=== PATIENT | female | born 2005 | race Caucasian/White ===

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

== ENCOUNTER 2023-01-10 08:56 | Outpatient (AMB) | payer OTHER, SELFPAY ==
--- NOTE | 2023-01-10 09:01 | MHC.OFFVISWM ---
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 She hear about our program from her PCP. Her goal is to lose weight and achieve a healthy lifestyle as well as to improve, if not resolve, obesity related medical conditions, including possible sleep apnea. She reports first being concerned about her weight 6-8 years, highest weight to date was 315. Current weight is 271.6 pounds with a BMI of 43.8. She has tried multiple methods of weight loss including fad diets without permanent results. She lives with her mom, sister, brother and neice. She works 4-5 days per week at [employer]. She states that she does have a.m. fatigue as well as snoring. She reports a sleep study done in [place] approximately 6 years ago when she feels as though she was diagnosed with sleep apnea although never received or was told she needed CPAP machine at night. She does recount that most of the discussion was with her mother as she was a young teenager at that time. As she continues to have symptoms, we will retest. She wakes at:?7 am, and goes to bed at?11 pm. Dinner is at 6 pm. Breakfast: skip AM snack: skip or apples or grapes Lunch: burger, sandwich PM snack: skip Dinner: chicken, rice, beans, pork, beef, vegetables After dinner: skip Other snacks: sunflower seeds and fruit roll-up Liquids: 16 oz water, 2 cans sprite or pepsi, no juice Alcohol/marijuana/tobacco intake: 1/2 bottle vodka daily, for 2 years, quit 1 month ago (none in the last month), 12/12/22, weekly smoke cannabis, no tobacco Exercise: planning on [employer] membership GERD score: 24 JENNIFER score: 2 ESS score: 16 QOL score: 115 PFSH Medical History PCOS (polycystic ovarian syndrome) Morbid obesity Scoliosis Surgical History Hx of tonsillectomy Family History Mother Hypertension Father Family history unknown Alcohol intake: never Patient Tobacco Use Status: Never used Tobacco Female Reproductive History Menstrual Age of Menarche: 7 Review of Systems Const All systems reviewed & are unremarkable except as noted in HPI and below Physical Exam Vital Signs: Last Vital Signs Temp 96.9 F 01/10/23 09:11 Pulse 75 01/10/23 09:11 BP 134/74 01/10/23 09:11 Pulse Ox 96 01/10/23 09:11 Oxygen Delivery Method Room Air 01/10/23 09:11 BMI result Body Mass Index 43.8 Const General: cooperative, healthy appearing and no acute distress Orientation/consciousness: patient oriented x3 HEENT Head: Yes normal to inspection Ears: hearing grossly normal bilaterally General nose exam: Normal external nose present Face and sinus: Yes normal facial exam Eyes General: appearance normal, both eyes and all related structures Resp Effort & Inspection: normal respiratory effort Auscultation: clear to auscultation bilaterally Cardio Rate: regular rate Rhythm: regular rhythm Heart sounds: S1 normal heart sound present and S2 normal heart sound present GI Inspection: Yes normal to inspection, No distended and Yes obesity Palpation (GI): Soft to palpation, nontender and no guarding Auscultation: normal bowel sounds Skin General skin exam: no rashes or lesions noted Neuro General: patient oriented x3 Extrem General: No edema Psych Appearance: grossly normal Mental Status: mental status grossly normal Speech and movement: Normal speech and movement present Affect: normal affect Attitude: cooperative Assessment & Plan Assessment & Plan (1) Morbid obesity: Code(s): E66.01 - Morbid (severe) obesity due to excess calories Plan: This is a?17 yo female who will start our SWL program to prepare for bariatric surgery.? Blood work, h pylori , CXR, ECG, Abd US and UGI have been ordered. She is being scheduled for RD and BH initial consultations. She will start SWL classes and watch the first three videos before her next appointment. ? Adequate sleep of 7-8 hours per night discussed, awakening at 7 am and going to bed at 11 pm ? Purchase body composition analyzer scale ([employer] recommended) and check weight weekly. The best time to do this is first thing in the morning after going to the bathroom. 1. Nutritional counseling: Be sure to careful read the number of scoops per shake Start with 1 Celebrate Rebuild shake ([facility] [employer], [employer], [employer]), (2 scoops in 20 oz unsweetened almond milk) at 8am-10am 2 Celebrate protein bars (Celebrate bars at [facility] [employer], [employer], [employer]) First one at 11am-1pm. Second one at 3pm-5pm. Dinner at 63.pm (10 forks of protein and 10 forks of salad/vegetables). Meal to include lean meat (beef, fish, pork, turkey, chicken), cooked vegetables or a salad with olive oil and/or fruits (berries, pears, apples, kiwi). Avoid salt, breads, potatoes, rice, pasta, desserts. Try to drink 64 oz of water daily and avoid soda and juices. ?2. Each shake would be drunk slowly, like coffee in a period of 2 hours. ?3. Cut each bar in 4 pieces and eat each piece in 30 min ?to make each bar last 2 hours. ?4. I emphasized the importance of measuring accurately the food portion and measure it carefully when serving the food on the plate ?5. The meal portions include 10 full-size forks of meat and 10 full-size forks of salad. You always eat the meat portion but you can replace up to half of the forks of salad/vegetables with rice, potatoes or pasta, or a fruit ?if you like. The less you do it the better weight loss will be. ?6. One full-size fork is what can be scooped on the fork without falling aside and not what can be bit with the fork. Use regular forks like those you find in a typical restaurant. ?7.? Please send me weight measurements as soon as possible and then once a week. Always include your diet and exercise plan. Alternatively come weekly at the office for weight checks and send me the measurements. ?8. Exercise counseling: Begin by watching a stretching for beginners video. Start slowly and begin to stretch your muscles. You should do this before and after each exercise session to prevent injury. Please join [facility] gym near your home. Ask the government relations manager or one of the trainers how to use the machines if you are unfamiliar with them. Start elliptical with a resistance of 2. Increase resistance by 1 every 3 min to your most comfortable resistance with a max resistance of 8. Reduce the resistance by 1 every 3 minutes back down to 2 and repeat cycles for 300 calories. Alternatively, start treadmill with a speed of 3.0 and incline of 0, increasing incline by 1 every 3 minutes to the highest comfortable level (max 6 for now) then decrease in the same fashion. Repeat process to a goal of 300 calories. Goal of 2000 calories burned or more weekly. You may also consider use of the stationary bike. The easiest would be to chose the fat-burn or interval training program on the machine and do this until you reach the 300 calorie goal. Alternatively, you can manually adjust the resistance in a similar fashion as mentioned above, (resistance of 2-8 with a goal speed of 12 mph). Tracking calories is essential. 9. Alternatively start walking outside daily, tracking calories with a goal of 300 calories per day, daily. You can download the eduardo [employer] which can track your time, distance and calories while walking outside. You press start in the eduardo when you start and then stop when you are finished. 10.? It is important to avoid for at least 18 months postoperatively and it has been discussed at the information session 11. Please get labs, EKG and chest X-Ray within 1 week. 12. Discussed and answered all questions regarding?obtained consent to participate in the [place] [facility]?Registry. 13. Please follow the diet plan exactly, without any change. If you do not like something about the plan or you feel hungry, you need to communicate with me so I can help you revise the plan. You should not change the plan yourself. Text me at [phone] 14. Goal is to lose at least 12 pounds in the first month 15. Goal is to lose 10% of your weight before surgery, which is about 27 lbs. Ultimate weight goal: 244 lbs before surgery Patient is morbidly obese and is not considered stable at this time.?I spent a total of 70 minutes reviewing/updating records, examining the patient and counseling the patient on weight management as detailed above. (2) Snoring: Code(s): R06.83 - Snoring Plan: check home sleep study, possible hx of JOVITA dx 2018 when she was 11 in [place] but not clear. Orders: Orders Insulin Today E66.01 - Morbid (severe) obesity due to excess calories, R06.83 - Snoring, R40.0 - Somnolence Vitamin B12 and Folate Today E66.01 - Morbid (severe) obesity due to excess calories, R06.83 - Snoring, R40.0 - Somnolence Zinc Today E66.01 - Morbid (severe) obesity due to excess calories, R06.83 - Snoring, R40.0 - Somnolence Comprehensive Met. Panel Today E66.01 - Morbid (severe) obesity due to excess calories, R06.83 - Snoring, R40.0 - Somnolence Vitamin A Today E66.01 - Morbid (severe) obesity due to excess calories, R06.83 - Snoring, R40.0 - Somnolence PTHI Today E66.01 - Morbid (severe) obesity due to excess calories, R06.83 - Snoring, R40.0 - Somnolence TSH reflex Free T4 Today E66.01 - Morbid (severe) obesity due to excess calories, R06.83 - Snoring, R40.0 - Somnolence Hemoglobin A1c Today E66.01 - Morbid (severe) obesity due to excess calories, R06.83 - Snoring, R40.0 - Somnolence US abdomen comp w elastography Today E66.01 - Morbid (severe) obesity due to excess calories, R06.83 - Snoring, R40.0 - Somnolence XR chest 2V Today E66.01 - Morbid (severe) obesity due to excess calories, R06.83 - Snoring, R40.0 - Somnolence RT home sleep study Today E66.01 - Morbid (severe) obesity due to excess calories, R06.83 - Snoring, R40.0 - Somnolence Lipid Panel Today E66.01 - Morbid (severe) obesity due to excess calories, R06.83 - Snoring, R40.0 - Somnolence IRON PROFILE Today E66.01 - Morbid (severe) obesity due to excess calories, R06.83 - Snoring, R40.0 - Somnolence Complete Blood Count Auto Diff Today E66.01 - Morbid (severe) obesity due to excess calories, R06.83 - Snoring, R40.0 - Somnolence Vitamin B1 Today E66.01 - Morbid (severe) obesity due to excess calories, R06.83 - Snoring, R40.0 - Somnolence C Reactive Protein Today E66.01 - Morbid (severe) obesity due to excess calories, R06.83 - Snoring, R40.0 - Somnolence Ferritin Today E66.01 - Morbid (severe) obesity due to excess calories, R06.83 - Snoring, R40.0 - Somnolence H Pylori Breath Test Today E66.01 - Morbid (severe) obesity due to excess calories, R06.83 - Snoring, R40.0 - Somnolence Vitamin D 25-OH Total Today E66.01 - Morbid (severe) obesity due to excess calories, R06.83 - Snoring, R40.0 - Somnolence ECG 12 lead EKG Today E66.01 - Morbid (severe) obesity due to excess calories, R06.83 - Snoring, R40.0 - Somnolence FL upper GI w air Today E66.01 - Morbid (severe) obesity due to excess calories, R06.83 - Snoring, R40.0 - Somnolence Referrals Behavioral Health Referral E66.01 - Morbid (severe) obesity due to excess calories, R06.83 - Snoring, R40.0 - Somnolence Nutrition/Dietitian Referral E66.01 - Morbid (severe) obesity due to excess calories, R06.83 - Snoring, R40.0 - Somnolence Coding Level of Care Code New Pt Level 5 (51517) Diagnoses Morbid obesity E66.01 Snoring R06.83 Time Spent (min) 75
[2023-01-10 09:11] VITALS: BP 134/74; PULSE 75; TEMP 36.1; O2SAT 96; BMI 43.8
== END 2023-01-10 14:22 | disposition home or self-care (01) ==
PROVIDERS: PCP Pediatrics; Visit Provider Physician Assistant Surgical
DX: E66.01 Morbid (severe) obesity due to excess calories (principal); Z68.54 Body mass index [BMI] pediatric, 95th percentile for age to less than 120% of the 95th percentile for age; R06.83 Snoring
CPT/HCPCS: 99205

== ENCOUNTER 2023-01-10 08:56 | Outpatient (REF) | payer OTHER, SELFPAY ==
--- NOTE | ~2023-01-10 | XR_ITS ---
EXAMINATION: XR CHEST CLINICAL INFORMATION: Morbid obesity COMPARISON: Chest radiograph from 12/07/2022 TECHNIQUE: 2 views of the chest were obtained. FINDINGS: Radiopacity involving the right medial lung base may reflect atelectasis versus evolving infectious/inflammatory etiology. No pneumothorax. Trachea is midline. Cardiac mediastinal silhouette is not enlarged. No large pleural effusion. Osseous structures are intact. Soft tissues are unremarkable. XR/XR chest 2V IMPRESSION: Radiopacity involving the right medial lung base may reflect atelectasis versus evolving infectious/inflammatory etiology.
--- NOTE | 2023-01-10 10:12 | ECG_ITS ---
Test Reason : e66.01 Blood Pressure : / mmHG Vent. Rate : 072 BPM Atrial Rate : 072 BPM P-R Int : 128 ms QRS Dur : 092 ms QT Int : 396 ms P-R-T Axes : 025 041 014 degrees QTc Int : 433 ms Normal sinus rhythm Incomplete right bundle branch block Borderline ECG When compared with ECG of 07-DEC-2022 19:20, Vent. rate has decreased BY 35 BPM Nonspecific T wave abnormality no longer evident in Anterior leads Referred By: Stanley Ruiz Electronically Signed By:CARRINGTON BASILIO MD
[2023-01-10 10:30] LABS: MANUAL DIFF FLAG NO
[2023-01-10 11:06] LABS: Basophils Percent Auto 0.3 % (0-2); Eosinophils Absolute Auto 0.2 X10*3/uL (0.0-0.4); Eosinophils Percent Auto 1.9 % (0-4); Hematocrit 40.6 % (37.0-47.0); Hemoglobin 12.6 g/dl (12.0-16.0); Imm Gran Abs Auto 0.05 X10*3/uL (0.00-0.03); Imm Gran Pct Auto 0.4 % (0.0-0.4); Lymphocytes Absolute Auto 3.1 X10*3/uL (1.2-4.9); Lymphocytes Percent Auto 24.9 % (20-40); Mean Corpuscular Volume 80.7 fL (80.0-98.0); Mean Platelet Volume 10.1 fL (9.4-12.3); Monocytes Absolute Auto 1.2 X10*3/uL (0.1-1.2); Monocytes Percent Auto 9.4 % (2-11); Neutrophils Absolute Auto 7.9 x10*3/uL (2.0-8.3); Neutrophils Percent Auto 63.1 % (45-73); Platelet Count 413 X10*3/uL (160-400); Red Blood Count 5.03 X10*6/uL (4.20-5.50); Red Cell Distribution Width 14.6 % (11.0-16.0); White Blood Count 12.5 X10*3/uL (4.8-10.8)
[2023-01-10 11:12] LABS: Estimated Average Glucose 103 mg/dL; Hemoglobin A1c % 5.2 % (<6.0)
[2023-01-10 11:40] LABS: Alanine Aminotransferase 73 U/L (0-31); Albumin Level 4.3 g/dL (3.5-5.0); Alkaline Phosphatase 88 U/L (39-117); Anion Gap 12 (12-20); Aspartate Amino Transferase 35 U/L (5-31); Bilirubin Total 0.6 mg/dL (0.0-1.0); Blood Urea Nitrogen 15 mg/dL (9-16); C Reactive Protein 0.44 mg/dL (< or = 0.50); Calcium 9.7 mg/dL (8.4-10.2); Carbon Dioxide 26 mmol/L (22-29); Chloride 107 mmol/L (96-108); Cholesterol 165 mg/dL (<200); Estimated Glomerular Filt Rate > 60; Glucose Random 103 mg/dL (60-115); HDL Cholesterol 49 mg/dL (>40); Iron 30 mcg/dL (30-160); LDL Cholesterol Calculated 93 mg/dL (<100); Percent Iron Saturation 8 % (15-50); Sodium 141 mmol/L (135-145); Total Iron Binding Capacity 353 mcg/dL (228-428); Total Protein 7.6 g/dL (6.5-8.0); Triglycerides 119 mg/dL (<150); Unsaturated Iron Binding 323 ug/dL
[2023-01-10 12:00] LABS: Ferritin 21 ng/mL (10-122); Insulin 33 uU/mL (2-29); TSH reflex Free T4 3.64 uIU/mL (0.32-4.0); Vitamin D 25-OH Total 16.2 ng/mL (>30)
[2023-01-10 12:06] LABS: Folate 5.9 ng/mL (> or = 4.0); Vitamin B12 524 pg/mL (200-900)
[2023-01-11 10:22] LABS: Calcium (PTHI) 9.6 mg/dL (8.9-10.4); PTHI 51 pg/mL (16-77)
[2023-01-12 16:53] LABS: Zinc 69 mcg/dL (60-130)
[2023-01-12 18:07] LABS: Vitamin A 33 mcg/dL (26-72)
[2023-01-14 10:03] LABS: Vitamin B1 7 nmol/L (8-30)
== END 2023-01-10 08:57 | disposition home or self-care (01) ==
LOC: HO.XRAY 08:56
PROVIDERS: PCP Pediatrics; Visit Provider Physician Assistant Surgical
DX: E66.01 Morbid (severe) obesity due to excess calories (principal); R06.83 Snoring; R40.0 Somnolence
CPT/HCPCS: 36415; 71046; 80053; 80061; 82306; 82607; 82728; 82746; 83036; 83525; 83540; 83970; 84425; 84443; 84590; 84630; 85025; 86140; 93005; 99202

== ENCOUNTER → 2023-01-31 09:01 | Outpatient (REF) | payer OTHER, SELFPAY ==
--- NOTE | 2023-01-31 09:04 | CA_ITS ---
Acquisition Time: 2023-01-31 09:16:49 Total Exercise Time: 00:06:08 Test Indications: Abnormal ECG Medications: Protocol: KIESHA Max HR: 184 BPM 91% of Pred: 201 BPM Max BP: 174/070 mmHG Max Work Load: 7.1 METS Exercise stress test exercise 6 min 8 sec of Kiesha protocol achieivng 90% MPHR, without chest discomfort, with mild SOB, without arrhythmias, with resting BP 118/82, max BP 174/70, without EKG changes. Test reviewed with Dr. Duarte Referred By: Stanley Ruiz Overread By: Sophia Madison
== END ==
LOC: HO.CARD 09:01
PROVIDERS: PCP Pediatrics; Visit Provider Physician Assistant Surgical
DX: R94.31 Abnormal electrocardiogram [ECG] [EKG] (principal)
CPT/HCPCS: 93017; 99212

== ENCOUNTER → 2023-01-31 09:04 | Outpatient (BNV) | payer OTHER, SELFPAY | PROVIDERS: PCP Pediatrics; Visit Provider Nurse Practitioner | DX: R94.31 Abnormal electrocardiogram [ECG] [EKG] (principal) | CPT/HCPCS: 93016; 93018 ==

== ENCOUNTER 2023-01-31 09:46 | Outpatient (AMB) | payer OTHER, SELFPAY ==
--- NOTE | 2023-01-31 09:56 | MHC.OFFVISWM ---
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 Allergies No Known Allergies Allergy (Verified 01/10/23 09:05) Medication List - Last Reconciled 01/31/23 by ENRIQUETA Barnes albuterol sulfate 90 mcg/actuation (ProAir HFA) 2 puffs inhalation Q4-6H PRN benzonatate 200 mg PO TID PRN ljuekmsbev-voepzqqrflhrf-cdut 50-325-40 mg 1 tab PO Q6H PRN cholecalciferol (vitamin D3) 125 mcg PO DAILY 90 days famotidine 20 mg PO BID ferrous sulfate 325 mg PO DAILY ibuprofen 600 mg PO Q8H PRN efhcbiqbpvdr-nirv-rkicl acid 18-400 mg-mcg 1 tab PO BEDTIME thiamine HCl (vitamin B1) 100 mg PO DAILY HPI HPI Comments History of Present Illness Details The patient is a pleasant 17 year old female who returns to the clinic for pre-operative surgical weight loss management. They were last seen in the office on 01/10/2023, recorded weight at that time was 271.6 pounds, with a BMI of 43.8. Today's weight is 269.6 pounds and BMI is 43.5. There has been a weight loss of 2 pounds since initiating the surgical weight loss program on 01/10/2023 with a total body weight loss of 0.7 %. Pre op work up completed as follows: SWL classes:? []/8 BH appts: 02/23/2023 ? ? RD appts: 01/27/2023 Labs: 01/10/2023-low D, B 1 H. pylori: Not yet done CXR: 01/10/2023-right lower lobe atelectasis verse involving infection or inflammation, states f/u w PCP and atelectasis favored over infectino EK01/10/2023-incomplete right bundle branch block ABD U/S: 02/11/2023 UGI: 01/10/2023 The patient reports she has been doing the forks at dinner. She has been having egg and sausage for breakfast, skip lunch most days due to work. The patient does not have a body composition scale. They also have not been communicating weekly. Current meal plan includes: 1 Celebrate Rebuild shake ([facility] [employer], [employer], [employer]), (2 scoops in 20 oz unsweetened almond milk) at 8am-10am 2 Celebrate protein bars ([employer] bars at [facility] [employer], [employer], [employer]) First one at 11am-1pm. Second one at 3pm-5pm. Dinner at 63.pm (10 forks of protein and 10 forks of salad/vegetables). Drinking 64 oz of water No cannabis in a month Current exercise plan includes: cousin has a treadmill, uses it 2 x per week, 250 calories did not join [employer] yet. [facility] Medical History PCOS (polycystic ovarian syndrome) Morbid obesity Scoliosis Surgical History Hx of tonsillectomy Family History Mother Hypertension Father Family history unknown Social History Alcohol intake: never Patient Tobacco Use Status: Never used Tobacco Female Reproductive History Menstrual Age of Menarche: 7 Review of Systems Const All systems reviewed & are unremarkable except as noted in HPI and below Physical Exam Const General: healthy appearing and no acute distress Resp Effort & Inspection: normal respiratory effort Auscultation: clear to auscultation bilaterally Cardio Rate: regular rate Rhythm: regular rhythm GI Auscultation: normal bowel sounds Extrem General: Yes normal to inspection Assessment & Plan Assessment & Plan (1) Morbid obesity: Code(s): E66.01 - Morbid (severe) obesity due to excess calories Plan: Due to financial reasons, she has been unable to obtain the shakes. She is scheduled to get them this when she gets paid. She additionally is going to join the gym, either [employer] near her work or [employer]. She will return to the office in approximately a month. She has been encouraged to text me weekly with her weight as well as if there is any issues or concerns. Reminded of upcoming appointments. Coding Level of Care Code Est Pt Level 3 (63975) Diagnoses Morbid obesity E66.01
[2023-01-31 10:11] VITALS: BP 145/96; PULSE 92; TEMP 36; O2SAT 96; BMI 43.5
== END 2023-01-31 10:29 | disposition home or self-care (01) ==
PROVIDERS: PCP Pediatrics; Visit Provider Physician Assistant Surgical
DX: E66.01 Morbid (severe) obesity due to excess calories (principal); Z68.54 Body mass index [BMI] pediatric, 95th percentile for age to less than 120% of the 95th percentile for age
CPT/HCPCS: 99213

== ENCOUNTER 2023-02-11 10:51 | Outpatient (REF) | payer OTHER, SELFPAY | END 2023-02-11 10:52 | disposition home or self-care (01) | LOC: HO.US 10:51 | PROVIDERS: PCP Pediatrics; Visit Provider Physician Assistant Surgical | DX: E66.01 Morbid (severe) obesity due to excess calories (principal); R06.83 Snoring; R40.0 Somnolence | CPT/HCPCS: 76705; 76981 ==

== ENCOUNTER 2023-02-15 12:24 | Outpatient (REF) | payer OTHER, SELFPAY ==
[2023-02-15 13:54] LABS: Hematocrit 39.6 % (37.0-47.0); Hemoglobin 12.8 g/dl (12.0-16.0); Mean Corpuscular HGB Conc 32.3 g/dl (31.0-35.0); Mean Corpuscular Hemoglobin 25.5 pg (27.0-33.0); Mean Platelet Volume 10.2 fL (9.4-12.3); Platelet Count 361 X10*3/uL (160-400); Red Blood Count 5.01 X10*6/uL (4.20-5.50); Red Cell Distribution Width 14.6 % (11.0-16.0); White Blood Count 7.9 X10*3/uL (4.8-10.8)
[2023-02-15 14:46] LABS: HCG Quantitative < 2 mIU/mL; TSH reflex Free T4 1.71 uIU/mL (0.32-4.0)
[2023-02-16 08:24] LABS: Prolactin 8.2 ng/mL
[2023-02-16 12:38] LABS: CT PCR NOT DETECTED (Not Detect.); NG PCR NOT DETECTED (Not Detect.)
[2023-02-16 15:31] LABS: BV Int Neg Control Negative (Negative); BV Int Pos Control Positive (Positive)
== END 2023-02-15 12:25 | disposition home or self-care (01) ==
LOC: HO.LAB 12:24
PROVIDERS: PCP Pediatrics; Visit Provider Obstetrics & Gynecology
DX: N93.9 Abnormal uterine and vaginal bleeding, unspecified (principal)
CPT/HCPCS: 0353U; 81025; 84146; 84443; 84702; 85027; 87480; 87510; 87660; 99212

== ENCOUNTER 2023-02-15 12:24 | Outpatient (AMB) | payer OTHER, SELFPAY ==
--- NOTE | 2023-02-15 12:25 | MHC.OFFVIS ---
Intake Vital Signs 02/15/23 12:33 Height 5 ft 6 in Weight 271 lb 4 oz BMI 43.8 BP 108/70 Blood Pressure Location Lt brachial Position Sitting Intake Visit Reasons: Irregular menses Intake Note: Pt c/o: since Dec 2022, her cycles have changing being more frequent and heavier flow with more cramping Allergies No Known Allergies Allergy (Verified 02/15/23 12:27) Is last menstrual period known: Yes Last menstrual period: 02/08/23 HPI HPI Comments History of Present Illness Details Presenting complaining of irregular menstrual cycles over the last few years with no associated had growth or nipple discharge PFSH Medical History PCOS (polycystic ovarian syndrome) Morbid obesity Scoliosis Surgical History Hx of tonsillectomy Family History Mother Hypertension Father Family history unknown Social History Alcohol intake: never Patient Tobacco Use Status: Never used Tobacco Female Reproductive History Menstrual Age of Menarche: 7 Date of last menstrual period: 02/08/23 Review of Systems Const All systems reviewed & are unremarkable except as noted in HPI and below Card Reports as per HPI Resp Reports as per HPI GI Reports as per HPI and Reports no additional complaints Reports as per HPI Physical Exam Vital Signs: Last Vital Signs BP 108/70 02/15/23 12:33 BMI result Body Mass Index 43.8 Const General: cooperative, healthy appearing and comfortable Chest Chest palpation & inspection: normal inspection of the chest and normal palpation of entire chest wall Breast/axilla inspection: normal inspection of the breasts and normal inspection of the axillae Breast/axilla palpation: normal palpation of the breasts, normal palpation of the axillae and no axillary lymphadenopathy Resp Effort & Inspection: normal respiratory effort Auscultation: clear to auscultation bilaterally Percussion: percussion normal Cardio Palpation: normal PMI Rate: regular rate Rhythm: regular rhythm Heart sounds: no murmurs and no rubs Peripheral pulses: Peripheral pulses 2+ throughout GI Inspection: Yes normal to inspection Palpation (GI): Soft to palpation, nontender, no guarding, not rigid and No hepatosplenomegaly present Percussion: Yes normal to percussion Auscultation: normal bowel sounds Rectal Exam - Female: deferred General: Yes bladder normal to palpation External Female Exam: No lesion Speculum Exam - Vagina: normal appearance of the vagina, normal palpation, normal vaginal discharge and not erythematous Speculum Exam - Cervix: normal appearance of the cervix and normal palpation Bimanual exam- vagina & uterus: normal bimanual exam, normal palpation, uterine size normal, bladder normal to palpation, consistency normal and normal palpation Bimanual Exam- Adnexa, other: normal adnexae, no masses and no tenderness Assessment & Plan Assessment & Plan (1) Abnormal uterine bleeding (AUB): Code(s): N93.9 - Abnormal uterine and vaginal bleeding, unspecified Plan: Pap smear not indicated this the patient is below the age of 21, GC and chlamydia taken CBC, TSH, HCG, and pelvic ultrasound ordered. Discussed with the patient the different causes of abnormal bleeding including thyroid disorders, uterine and ovarian pathology and other potential causes. Discussed with the patient the work up including CBC (to r/o anemia), TSH, pelvic Ultrasound. All questions answered and the patient verbalized understanding. Instructed the patient to schedule an appointment for an endometrial biopsy in 2 weeks. Orders: Orders Complete Blood Count no Diff Today N93.9 - Abnormal uterine and vaginal bleeding, unspecified US pelvic and transvaginal Today N93.9 - Abnormal uterine and vaginal bleeding, unspecified TSH reflex Free T4 Today N93.9 - Abnormal uterine and vaginal bleeding, unspecified HCG Quantitative Today N93.9 - Abnormal uterine and vaginal bleeding, unspecified Prolactin Today N93.9 - Abnormal uterine and vaginal bleeding, unspecified Coding Level of Care Code Est Pt Level 3 (64067) Diagnoses Abnormal uterine bleeding (AUB) N93.9
[2023-02-15 12:33] VITALS: BP 108/70; BMI 43.8
== END 2023-02-15 13:04 | disposition home or self-care (01) ==
LOC: HO.HWS 12:24
PROVIDERS: PCP Pediatrics; Visit Provider Obstetrics & Gynecology
DX: N93.9 Abnormal uterine and vaginal bleeding, unspecified (principal); Z32.02 Encounter for pregnancy test, result negative
CPT/HCPCS: 99213

== ENCOUNTER 2023-02-15 12:48 | Outpatient (REF) | payer OTHER, SELFPAY | END 2023-02-15 12:49 | disposition home or self-care (01) | LOC: HO.LNP 12:48 | PROVIDERS: Visit Provider Obstetrics & Gynecology | DX: Z13.89 Encounter for screening for other disorder (principal) ==

== ENCOUNTER → 2023-02-22 15:09 | Outpatient (REF) | payer OTHER, SELFPAY | LOC: HO.SL 15:09 | PROVIDERS: PCP Pediatrics; Visit Provider Physician Assistant Surgical | DX: R06.83 Snoring (principal); E66.01 Morbid (severe) obesity due to excess calories; R40.0 Somnolence | CPT/HCPCS: 95806 ==

== ENCOUNTER → 2023-02-22 15:17 | Outpatient (BNV) | payer OTHER, SELFPAY | PROVIDERS: PCP Pediatrics; Visit Provider Internal Medicine | DX: R06.83 Snoring (principal) | CPT/HCPCS: 95806 ==

== ENCOUNTER 2023-03-07 10:30 | Outpatient (AMB) | payer OTHER, SELFPAY ==
--- NOTE | 2023-03-07 10:29 | MHC.OFFVISWM ---
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 Allergies No Known Allergies Allergy (Verified 02/15/23 12:27) Medication List - Last Reconciled 03/07/23 by ENRIQUETA Barnes albuterol sulfate 90 mcg/actuation (ProAir HFA) 2 puffs inhalation Q4-6H PRN benzonatate 200 mg PO TID PRN bdxytukqrf-lqnbsbjsjppmm-ewax 50-325-40 mg 1 tab PO Q6H PRN cholecalciferol (vitamin D3) 125 mcg PO DAILY 90 days famotidine 20 mg PO BID ferrous sulfate 325 mg PO DAILY ibuprofen 600 mg PO Q8H PRN ixnbhiguuzzz-rsjo-xvwws acid 18-400 mg-mcg 1 tab PO BEDTIME thiamine HCl (vitamin B1) 100 mg PO DAILY HPI HPI Comments History of Present Illness Details The patient is a pleasant 17 year old female who returns to the clinic for pre-operative surgical weight loss management. They were last seen in the office on 01/31/23, recorded weight at that time was 269.6 pounds, with a BMI of 43.5. Today's weight is 274 pounds and BMI is 44.2. There has been a weight gain of 2.4 pounds since initiating the surgical weight loss program on 01/10/2023. Pre op work up completed as follows: SWL classes:? []/8 appts: 02/23/2023 ? ? RD appts: 01/27/2023 Labs: 01/10/2023-low D, B 1 H. pylori: Not yet done CXR: 01/10/2023-right lower lobe atelectasis verse involving infection or inflammation, states f/u w PCP and atelectasis favored over infection EK01/10/2023-incomplete right bundle branch block - stress test 01/31/23 - normal ABD U/S: 02/11/2023 UGI: 01/10/2023 The patient reports she has not been following the meal plan and exercise plan. She has not been communicating although she has gotten the body composition scales. She reports she has been having trouble mentally. She has discussed this with her PCP and was referred to a therapist but did not get along with her. She has not tried to get a referral. She will call her PCP She has the shakes and bars. She reports difficulty with food. She states she grew up in a house of skinny people and she always felt that she doesn't want to eat much. She is having the shake and then toast and eggs and then a bar around lunch and then another shake. Not measuring food Current meal plan includes: 1 Celebrate Rebuild shake ([facility] [employer], [employer], [employer]), (2 scoops in 20 oz unsweetened almond milk) at 8am-10am 2 Celebrate protein bars ([employer] bars at [facility] [employer], [employer], [employer]) First one at 11am-1pm. Second one at 3pm-5pm. Dinner at 630pm (10 forks of protein and 10 forks of salad/vegetables). Drinking 64 oz of water No cannabis in a while maybe end of January. Current exercise plan includes: she joined with her cousin. gym 3 days per week. treadmill, 350 calories [facility] Medical History PCOS (polycystic ovarian syndrome) Morbid obesity Scoliosis Surgical History Hx of tonsillectomy Family History Mother Hypertension Father Family history unknown Social History Alcohol intake: never Patient Tobacco Use Status: Never used Tobacco Female Reproductive History Menstrual Age of Menarche: 7 Review of Systems Const All systems reviewed & are unremarkable except as noted in HPI and below Assessment & Plan Assessment & Plan (1) Morbid obesity: Code(s): E66.01 - Morbid (severe) obesity due to excess calories Plan: Discussed the critical nature of following the meal plan exactly, following the exercise plan as recommended. Texting weekly with her weight measurements and if she has any problems or concerns with the plans. She states that she will call her primary care physician to discuss referral for a behavioral health specialist as she states her mental health has been inhibiting her progress. Additionally, we discussed the possibility of taking a break from the program but she wishes to be successful. She states that she will commit and we discussed the goal of a 2-3 lb weight loss per week. We will have her return to the office in approximately 1 month with the understanding that if she needs to take a break she certainly can. She had no specific questions and she will communicate as directed. Reminded of missed appointments and she will call to reschedule. Additionally, given her irregular EKG with an incomplete right bundle branch block. She underwent a stress test on 01/31/2023 which was normal. Telehealth Telehealth Location of provider rendering services: practice address Location of patient: address on file Patient Identification confirmed using: Name, : Yes Telehealth method: voice only Patient verbally consented to treatment: Yes Patient verbally consented to billing insurance company: Yes Patient informed of any privacy concerns related to visit: Yes Minutes spent on Phone/Video with Pt.: 25 Coding Level of Care Code Tele Est Pt Level 4 (41898) Diagnoses Morbid obesity E66.01 Time Spent (min) 40
[2023-03-07 10:37] VITALS: BMI 44.2
== END 2023-03-07 11:29 | disposition home or self-care (01) ==
LOC: HO.HBS 11:06
PROVIDERS: PCP Pediatrics; Visit Provider Physician Assistant Surgical
DX: E66.01 Morbid (severe) obesity due to excess calories (principal)
CPT/HCPCS: 99214

== ENCOUNTER → 2023-03-07 10:30 | Outpatient (BNVA) | payer OTHER, SELFPAY | PROVIDERS: PCP Pediatrics; Visit Provider Physician Assistant Surgical | DX: E66.01 Morbid (severe) obesity due to excess calories (principal) ==

== ENCOUNTER 2023-03-08 13:19 | Outpatient (REF) | payer OTHER, SELFPAY ==
--- NOTE | ~2023-03-08 | US_ITS ---
EXAMINATION: US PELVIS CLINICAL INFORMATION: Abnormal uterine and vaginal bleeding; the last menstrual period was on 02/02/2023. COMPARISON: Pelvic ultrasound dated 09/18/2020. TECHNIQUE: Ultrasound of the pelvis is performed using both transabdominal and transvaginal transducers along with Doppler. Transvaginal imaging is performed due to inadequate visualization transabdominally. FINDINGS: Uterus: The uterus is anteverted and anteflexed. The uterus measures 7.7 x 3.7 x 5.1 cm. Nabothian cysts are seen within the cervix. The double wall endometrial thickness is 1.7 mm. There are endometrial cystic changes and increased vascularity. The uterus is smooth in contour and has normal myometrial echogenicity. No visible fibroid. Adnexa: Both ovaries are visualized. There is normal color flow to the adnexa. There is no ovarian torsion. There is no pelvic ascites or fluid collection. Right ovary measures 3.9 x 2.4 x 1.9 cm, volume 9.3 mm. Left ovary measures 3.7 x 2.2 x 1.9 cm, volume 8.1 mL. US/US pelvic and transvaginal IMPRESSION: 1. There is endometrial stripe thickening to 1.7 cm, with cystic change. Gynecology evaluation and management are recommended, with consideration for tissue sampling if clinically appropriate. 2. Nabothian cysts are seen within the cervix.
== END 2023-03-08 13:20 | disposition home or self-care (01) ==
LOC: HO.US 13:19
PROVIDERS: PCP Pediatrics; Visit Provider Obstetrics & Gynecology
DX: N93.9 Abnormal uterine and vaginal bleeding, unspecified (principal)
CPT/HCPCS: 76830; 76856

== ENCOUNTER 2023-03-24 08:35 | Outpatient (REF) | payer OTHER, SELFPAY ==
--- NOTE | ~2023-03-24 | FL_ITS ---
EXAMINATION: XR FLUOROSCOPY UPPER GI WITH AIR CLINICAL INFORMATION: Morbid obesity due to excess calories; reflux episodically. COMPARISON: No prior. TECHNIQUE: Fluoroscopic air contrast upper GI examination was performed utilizing standard techniques with thin and thick barium and effervescent granules. Numerous spot images were obtained. Several fluoroscopic image hold cine sequences were also obtained. FINDINGS: Lateral cine images of the oropharynx and hypopharynx demonstrate normal swallow mechanism with normal epiglottic inversion and soft palate elevation. No tracheal penetration, glottic or subglottic aspiration identified. No nasopharyngeal reflux present. Hypopharyngeal structures appear normal without evidence of mass or diverticulum. There was no significant cricopharyngeal achalasia. Dual and single contrast images of the esophagus demonstrate normal caliber, contour, and mucosal pattern. No evidence of stricture, mass, or ulcerations identified. Primary esophageal peristalsis was normal, however followed by very mild nonpropulsive tertiary contractions. No evidence of hiatus hernia identified. Spontaneous gastroesophageal reflux present to the level of the thoracic inlet. Dual contrast and single contrast images of the stomach demonstrated normal contour and mucosal pattern without evidence of mass, ulceration, or other abnormality. Contrast freely passed into the gastric antrum and duodenal bulb without delay. Single and air-contrast images of the duodenal bulb demonstrate no abnormality. The duodenal sweep has a normal appearance, course, and mucosal fold appearance. No malrotation. The imaged proximal jejunum has a normal fold pattern and caliber. FLUOROSCOPY TIME: 3 minutes 44 seconds Number of Spot Images: 7 Number of cines obtained: 13 DOSE AREA PRODUCT: 445.9 uGy-m2 (microgray-meter squared) FL/FL upper GI w air IMPRESSION: Significant gastroesophageal reflux to the level of the thoracic inlet. Mildly disordered tertiary contractions of the esophagus. Otherwise normal exam.
== END 2023-03-24 08:36 | disposition home or self-care (01) ==
LOC: HO.XRAY 08:35
PROVIDERS: PCP Pediatrics; Visit Provider Physician Assistant Surgical
DX: E66.01 Morbid (severe) obesity due to excess calories (principal); R06.83 Snoring; R40.0 Somnolence
CPT/HCPCS: 74246

== ENCOUNTER → 2023-03-24 08:36 | Outpatient (BNV) | payer OTHER, SELFPAY | PROVIDERS: PCP Pediatrics; Visit Provider Radiology Diagnostic Radiology | DX: K21.9 Gastro-esophageal reflux disease without esophagitis (principal); E66.01 Morbid (severe) obesity due to excess calories | CPT/HCPCS: 74246 ==

== ENCOUNTER 2023-06-13 13:01 | Outpatient (AMB) | payer OTHER, SELFPAY ==
--- NOTE | 2023-06-13 13:31 | A.OFFVIS_ITS ---
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 The following workup was done.: H&H= 12.8/39.6 TSH, prolactin, GC and chlamydia were negative. Pelvic ultrasound showed the following: Uterus: The uterus is anteverted and anteflexed. The uterus measures 7.7 x 3.7 x 5.1 cm. Nabothian cysts are seen within the cervix. The double wall endometrial thickness is 1.7 mm. There are endometrial cystic changes and increased vascularity. The uterus is smooth in contour and has normal myometrial echogenicity. No visible fibroid. Adnexa: Both ovaries are visualized. There is normal color flow to the adnexa. There is no ovarian torsion. There is no pelvic ascites or fluid collection. Right ovary measures 3.9 x 2.4 x 1.9 cm, volume 9.3 mm. Left ovary measures 3.7 x 2.2 x 1.9 cm, volume 8.1 mL. PFSH Medical History (Updated 07/01/23 @ 11:44 by Alvina Frank RN) Migraine PCOS (polycystic ovarian syndrome) Morbid obesity Scoliosis Surgical History (Updated 07/01/23 @ 11:28 by Alvina Frank RN) Hx of wisdom tooth extraction Hx of tonsillectomy Family History Mother Hypertension Father Family history unknown Social History Alcohol intake: never Patient Tobacco Use Status: Never used Tobacco Use of substances other than those prescribed or required for medical reasons: No Are you DNR?: No Advance Directives: No Advance Directives Information Provided: Yes Female Reproductive History Menstrual Age of Menarche: 7 Date of last menstrual period: 06/04/23 Total pregnancies: 2 Full term: 2 Review of Systems Const All systems reviewed & are unremarkable except as noted in HPI and below Reports as per HPI and Reports no additional complaints Card Reports as per HPI and Reports no additional complaints Resp Reports as per HPI and Reports no additional complaints GI Reports no additional complaints Reports no additional complaints Physical Exam Vital Signs: Last Vital Signs BP 120/72 06/13/23 13:36 BMI result Body Mass Index 44.1 Const General: cooperative, healthy appearing and comfortable Resp Effort & Inspection: normal respiratory effort Auscultation: clear to auscultation bilaterally Percussion: percussion normal Cardio Palpation: normal PMI Rate: regular rate Rhythm: regular rhythm Heart sounds: no murmurs and no rubs Peripheral pulses: Peripheral pulses 2+ throughout GI Inspection: Yes normal to inspection Palpation (GI): Soft to palpation, nontender, no guarding, not rigid and No hepatosplenomegaly present Percussion: Yes normal to percussion Auscultation: normal bowel sounds Rectal Exam - Female: deferred Assessment & Plan Assessment & Plan (1) Abnormal ultrasound of endometrium: Code(s): R93.5 - Abnormal findings on diagnostic imaging of other abdominal regions, including retroperitoneum Category: Medical Plan: Discussed with the patient the finding on pelvic ultrasound showing cystic endometrium with hypervascularity; possible differential diagnosis includes normal menstrual cycle changes, endometrial polyp, hyperplasia or malignancy. Recommended endometrial sampling via EMB versus hysteroscopy D&C possible polypectomy. All the pros and cons risks and benefits of each approach were discussed with the patient, endometrial biopsy being less invasive, office procedure with less sensitivity and inability diagnose a polyp and removal versus hysteroscopy done under anesthesia more invasive more sensitive to endometrial cancer and possibility of diagnosing and endometrial polyp with the possibility of polypectomy. All questions were answered pt verbalized understanding and decided to proceed with hysteroscopy D&C possible polypectomy/myomectomy Discussed with the patient the procedure , all benefits and risks including but not limited to inability to complete the procedure , insufficient endometrial tissue for a complete evaluation of the endometrial cavity , bleeding, infection, possible need for blood transfusion with all its risk ( HIV,syphilis, Hepatitis, anaphylaxis shock, others..), injury to bladder, rectum, possible need for laparoscopy/laparotomy or hysterectomy. The patient verbalized understanding and signed the consent. Instructions given the patient to schedule a 2 week postoperative appointment Coding Level of Care Code Est Pt Level 3 (62318) Diagnoses Abnormal ultrasound of endometrium R93.5
[2023-06-13 13:36] VITALS: BP 120/72; BMI 44.1
== END 2023-06-13 13:55 | disposition home or self-care (01) ==
PROVIDERS: PCP Pediatrics; Visit Provider Obstetrics & Gynecology
DX: R93.5 Abnormal findings on diagnostic imaging of other abdominal regions, including retroperitoneum (principal)
CPT/HCPCS: 99213

== ENCOUNTER → 2023-06-13 13:01 | Outpatient (BNVA) | payer OTHER, SELFPAY | PROVIDERS: PCP Pediatrics; Visit Provider Obstetrics & Gynecology | DX: R93.5 Abnormal findings on diagnostic imaging of other abdominal regions, including retroperitoneum (principal) | CPT/HCPCS: 99212 ==

== ENCOUNTER 2023-07-01 10:55 | Day surgery (SDC) | payer OTHER, SELFPAY ==
[2023-06-29 09:15] VITALS: BMI 44.1
--- NOTE | 2023-06-29 13:27 | HO.ANESPROP2 ---
Documented by User: Katherine Hicks NP 06/29/23 13:27 HPI - Anesthesia Eval Consult details Narrative: 18yo F for D&C Hysteroscopy,possible myomectomy,possible polypectomy BMI 44 PMFSH Active Problems Active Problems: All Active Problems Abnormal ultrasound of endometrium (Acute) Abnormal EKG (Acute) Daytime sleepiness (Acute) Snoring (Acute) Encounter for weight management (Acute) Encounter to discuss test results (Acute) Amenorrhea (Acute) Elevated blood pressure reading without diagnosis of hypertension (Acute) PCOS (polycystic ovarian syndrome) (Acute) Anemia (Acute) Morbid obesity (Acute) Abnormal uterine bleeding (AUB) (Acute) Morbid obesity with BMI of 40.0-44.9, adult (Acute) Past Medical History Medical History (Updated 07/01/23 @ 11:44 by Alvina Frank, RN) Migraine PCOS (polycystic ovarian syndrome) Morbid obesity Scoliosis Family History Family History Mother Hypertension Father Family history unknown Surgical History Surgical History (Updated 07/01/23 @ 11:28 by Alvina Frank RN) Hx of wisdom tooth extraction Hx of tonsillectomy Social History Social History Alcohol intake: never Patient Tobacco Use Status: Never used Tobacco Use of substances other than those prescribed or required for medical reasons: No Are you DNR?: No Advance Directives: No Advance Directives Information Provided: Yes Meds Allergies Allergy/AdvReac Type Severity Reaction Status Date / Time No Known Allergies Allergy Verified 07/01/23 11:21 Home Medications ?Medication ?Instructions ?Recorded ?Confirmed ?Last Taken ?Type ibuprofen 600 mg tablet 600 mg PO Q8H PRN Pain 08/08/20 06/29/23 Unknown History multivitamin-ferrous 1 tab PO BEDTIME 08/08/20 06/29/23 Unknown History fumarate-folic acid 18 mg-400 mcg tablet Exam Height,Weight and Vital Signs: Height 5 ft 6 in Weight 124 kg Assessment and Plan Assessment Anesthesia Assessment: Chart Reviewed Documented by User: Candy Sen MD 07/01/23 12:26 PMFSH Past Medical History Medical History (Updated 07/01/23 @ 11:44 by Alvina Frank, RN) Migraine PCOS (polycystic ovarian syndrome) Morbid obesity Scoliosis Family History Family History Mother Hypertension Father Family history unknown Family history of problems with anesthesia: No Surgical History Surgical History (Updated 07/01/23 @ 11:28 by Alvina Frank, RN) Hx of wisdom tooth extraction Hx of tonsillectomy History of Problems with Anesthesia: No Social History Social History Alcohol intake: never Patient Tobacco Use Status: Never used Tobacco Use of substances other than those prescribed or required for medical reasons: No Are you DNR?: No Advance Directives: No Advance Directives Information Provided: Yes Meds Allergies Allergy/AdvReac Type Severity Reaction Status Date / Time No Known Allergies Allergy Verified 07/01/23 11:21 Home Medications ?Medication ?Instructions ?Recorded ?Confirmed ?Last Taken ?Type ibuprofen 600 mg tablet 600 mg PO Q8H PRN Pain 08/08/20 06/29/23 Unknown History multivitamin-ferrous 1 tab PO BEDTIME 08/08/20 06/29/23 Unknown History fumarate-folic acid 18 mg-400 mcg tablet Exam Airway Mallampati Class: II TM Dist: >3cm Neck ROM: Full Assessment and Plan Assessment Anesthesia Assessment: Anesthesia Plan Discussed Final Anesthetic Review Family History of Problems with Anesthesia: No History of Problems with Anesthesia: No NPO: Yes ASA Class: III Final Preanesthetic Review: No Changes in Pt Med Stat, Meds/Allgs Chart Reviewed, Consent Obtained/Reviewed and Anes Risks/Benef Reviewed Patient Risk: Intermediate Procedure Risk: Low Anesthetic Plan Anesthetic Plan: GA Disposition: Standard PACU
[2023-07-01 11:21] VITALS: BMI 44.5
[2023-07-01 11:32] VITALS: BP 136/79; PULSE 62; RESP 16; TEMP 36.1; O2SAT 97
[2023-07-01 11:38] LABS: UPreg QC Valid YES; Urine Pregnancy NEGATIVE (NEGATIVE)
[2023-07-01] MEDS: Lactated Ringers 1,000 ML 100 ML IVCONT (11:41)
--- NOTE | 2023-07-01 11:45 | MHC.SHP ---
Pre-Procedural Eval Section A - 24 Hr Update-Section A only Date of Service: 07/01/23 The patient is an INPATIENT: No Changes since office visit: No Cold of Flu in the past 2 weeks, No New Medical Problems, No Changes in Medication and No Patient answered all questions The patient has been examined within 24 hours of the surgical procedure. The History & Physical has been completed within 30 days and I have reviewed it.: Yes Section B - Complete if H&P > 30 days Chief Complaint: Abnormal findings on diagnostic imaging Allergies: Allergies Allergy/AdvReac Type Severity Reaction Status Date / Time No Known Allergies Allergy Verified 07/01/23 11:21 Plan Diagnosis/Plan: Unchanged I have reviewed the history and physical and performed a pertinent physical examination on my patient. No changes have occurred unless specified. Time Spent With Patient Time: Total time managing care of this patient today ____ minutes.
--- NOTE | 2023-07-01 13:27 | PM.OP ---
Brief Operative Note Date of Service: 07/01/23 Pre-op diagnosis: Abnormal uterine bleeding Abnormal endometrium by ultrasound Post-op diagnosis: same (Normal endometrial cavity) Procedure: Hysteroscopy D&C Surgeon: Ramirez Renteria MD Anesthesia: GLMA Was an Cardiac Monitor used for this Procedure?: No Estimated blood loss (mL): 0 Pathology: other (Endometrial Scrapping. ) Condition: stable Disposition: PACU
--- NOTE | 2023-07-01 13:27 | W.PM.OPN ---
Operative Note Operative Note Date of Service: 07/01/23 Narrative: Preop Diagnosis: Abnormal uterine bleeding, abnormal endometrial by ultrasound Operation: Diagnostic Hysteroscopy, Dilataion & Curettage Post Op Diagnosis: Normal endometrial and endocervical cavity, no evidence of pathology QBL: Minimal Anesthesia: GLMA Surgeon: Ramirez Renteria MD Account Installer: None Complication: None Pathology: Endometrial Scrapings Procedure: The patient was put in the dorsal lithotomy position, scrubbed, and draped in the usual manner. A sterile speculum was inserted in the patient's vagina. The anterior lip of the cervix was grasped with a single tooth tenaculum. The cervix was dilated up to 5 mm, then the scope was inserted in the patient's uterus. Inspection revealed normal endocervical & endometrial cavity with no evidence of pathology. The scope was taken out of the uterine cavity , then sharp curetting was carried on with no complications. At the end of the procedure, all instruments were taken out of the patient uterine and vaginal cavity. The single tooth tenaculum was removed and homeostasis was assured using pressure. The patient tolerated the procedure well and was transferred to the PACU in a stable condition.
[2023-07-01 13:30] VITALS: BP 138/84; PULSE 71; RESP 14; TEMP 36.2; O2SAT 93
[2023-07-01 13:35] VITALS: BP 144/88; PULSE 57; RESP 16; O2SAT 96
[2023-07-01 13:40] VITALS: BP 140/91; PULSE 57; RESP 16; O2SAT 96
[2023-07-01 13:45] VITALS: BP 131/89; PULSE 73; RESP 16; O2SAT 97
[2023-07-01 14:00] VITALS: BP 116/71; PULSE 58; RESP 16; TEMP 36.4; O2SAT 97
== END 2023-07-01 15:12 | disposition home or self-care (01) ==
PROVIDERS: PCP Pediatrics; Visit Provider Obstetrics & Gynecology
PROC: 0UDB8ZZ Extraction of Endometrium, Via Natural or Artificial Opening Endoscopic (ICD-10-PCS; CPT 58558; principal; 2023-07-01 12:40)
DX: N93.9 Abnormal uterine and vaginal bleeding, unspecified (principal); R93.5 Abnormal findings on diagnostic imaging of other abdominal regions, including retroperitoneum; E28.2 Polycystic ovarian syndrome; M41.9 Scoliosis, unspecified; E66.01 Morbid (severe) obesity due to excess calories; Z68.41 Body mass index [BMI] 40.0-44.9, adult; Z79.1 Long term (current) use of non-steroidal anti-inflammatories (NSAID); Z79.899 Other long term (current) drug therapy
CPT/HCPCS: 58558; 81025; 88305; J1885; J2405; J2704; J3010

== ENCOUNTER → 2023-07-01 10:55 | Outpatient (BNV) | payer OTHER, SELFPAY | PROVIDERS: PCP Pediatrics; Visit Provider Obstetrics & Gynecology | DX: N93.9 Abnormal uterine and vaginal bleeding, unspecified (principal) | CPT/HCPCS: 58558 ==

== ENCOUNTER 2023-07-14 12:36 | Outpatient (AMB) | payer OTHER, SELFPAY ==
[2023-07-14 13:06] VITALS: BP 124/76; BMI 44.2
--- NOTE | 2023-07-14 13:06 | MHC.OFFVIS ---
Vital Signs 07/14/23 13:06 Height 5 ft 6 in Weight 274 lb BMI 44.2 BP 124/76 Intake Visit Reasons: post op Allergies No Known Allergies Allergy (Verified 07/01/23 11:21) HPI Comments Details: The patient is presenting post hysteroscopy D&C no complaints minimal vaginal bleeding no feverishness chills or abdominal pain. The pathology showed the following: Disordered proliferative endometrium; negative for atypia or hyperplasia H&H, TSH, prolactin, hCG, GC/CT were all negative. Pelvic ultrasound showed the following: Uterus: The uterus is anteverted and anteflexed. The uterus measures 7.7 x 3.7 x 5.1 cm. Nabothian cysts are seen within the cervix. The double wall endometrial thickness is 1.7 mm. There are endometrial cystic changes and increased vascularity. The uterus is smooth in contour and has normal myometrial echogenicity. No visible fibroid. Adnexa: Both ovaries are visualized. There is normal color flow to the adnexa. There is no ovarian torsion. There is no pelvic ascites or fluid collection. Right ovary measures 3.9 x 2.4 x 1.9 cm, volume 9.3 mm. Left ovary measures 3.7 x 2.2 x 1.9 cm, volume 8.1 mL. PFSH Medical History Migraine PCOS (polycystic ovarian syndrome) Morbid obesity Scoliosis Surgical History Hx of wisdom tooth extraction Hx of tonsillectomy Family History Mother Hypertension Father Family history unknown Social History Alcohol intake: never Patient Tobacco Use Status: Never used Tobacco Female Reproductive History Menstrual Age of Menarche: 7 Review of Systems Const All systems reviewed & are unremarkable except as noted in HPI and below Reports as per HPI and Reports no additional complaints GI Reports no additional complaints Reports no additional complaints Physical Exam Vital Signs: BMI result Body Mass Index 44.2 Assessment & Plan Assessment & Plan (1) Abnormal ultrasound of endometrium: Code(s): R93.5 - Abnormal findings on diagnostic imaging of other abdominal regions, including retroperitoneum Category: Medical Plan: Discussed with the patient the hysteroscopic intraoperative finding, no evidence of abnormal pathology, and the pathology results. All questions answered, the patient verbalized understanding (2) Abnormal uterine bleeding (AUB): Code(s): N93.9 - Abnormal uterine and vaginal bleeding, unspecified Category: Medical Plan: Discussed with the patient the results of the work up done and options of treatment including but not limited to BCP's, cyclic Progesterone, Mirena IUD, endometrial ablation and hysterectomy. All pros, cons, risks and benefits of each option were discussed with the patient and the patient decided to go ahead with cyclic progesterone, so a more detailed discussion re: Progesterone treatment including mechanism of action, benefits (regular menses, endometrial protection form unopposed estrogen and reduction in the risk of endometrial hyperplasia and/or cancer ...), risks (Thrombosis, mood changes, weight gain, breast soreness, ? increased breast ca, others). Instructions were given to use a back- up method for contraception since this is not a method control, take a Prometrium 200 mg daily starting day 15-24 and to schedule a 3 months follow-up appointment; patient verbalized understanding and agreed with the plan. Medications: New progesterone micronized (Prometrium) Take the pill 1 tablet a day cyclically every month from day 15-24 day 1 being the 1st day of next menstrual cycle 200 mg PO BEDTIME 10 days 30 caps 0RF Coding Level of Care Code Est Pt Level 3 (69342) Diagnoses Abnormal ultrasound of endometrium R93.5 Abnormal uterine bleeding (AUB) N93.9
== END 2023-07-14 13:22 | disposition home or self-care (01) ==
LOC: HO.HWS 12:36
PROVIDERS: PCP Pediatrics; Visit Provider Obstetrics & Gynecology
DX: R93.5 Abnormal findings on diagnostic imaging of other abdominal regions, including retroperitoneum (principal); N93.9 Abnormal uterine and vaginal bleeding, unspecified
CPT/HCPCS: 99213

== ENCOUNTER → 2023-07-14 12:36 | Outpatient (BNVA) | payer OTHER, SELFPAY | PROVIDERS: PCP Pediatrics; Visit Provider Obstetrics & Gynecology | DX: R93.5 Abnormal findings on diagnostic imaging of other abdominal regions, including retroperitoneum (principal); N93.9 Abnormal uterine and vaginal bleeding, unspecified | CPT/HCPCS: 99212 ==

== ENCOUNTER 2024-07-10 11:57 | Emergency (ER) | payer OTHER, SELFPAY ==
--- NOTE | ~2024-07-10 | XR_ITS ---
EXAMINATION: XR CHEST CLINICAL INFORMATION: cough COMPARISON: 01/10/2023. TECHNIQUE: 2 views of the chest were obtained. FINDINGS: The cardiac, hilar, and mediastinal contours are normal. The lungs are clear bilaterally. There is no pneumothorax or pleural effusion. There is no focal osseous or soft tissue abnormality. There is a mild right convex thoracic scoliosis. XR/XR chest 2V IMPRESSION: No active pulmonary disease. Electronically signed by: Frank Madison MD 07/10/2024 12:15 PM EDT
[2024-07-10 12:01] VITALS: BP 153/96; PULSE 80; RESP 18; TEMP 36.9; O2SAT 98; BMI 45.9
--- NOTE | 2024-07-10 12:02 | ED.URI ---
HPI - URI/Sore Throat General Chief Complaint: Upper Respiratory Symptoms Stated Complaint: Sore throat, cough Time Seen by Provider: 07/10/24 13:14 Source: patient and old records reviewed Mode of arrival: ambulatory Limitations: no limitations History of Present Illness ED Provider: BETTY SMITH Narrative: 19 yo female with PMH of anemia, PCOS here with c/o sore throat and dry cough x 2 days. No fevers. She notes it is just getting worse and hurts to swallow. Her brother has strep throat. No CP/SOB. She is traveling soon and is worried if she gets sick while camping. MD elicited complaint: sore throat Onset (ago): day(s) (2) Consistency: constant Severity: moderate Description of mucous: clear Able to tolerate fluids by mouth: Yes Exacerbating factors: swallowing Relieving factors: nothing Context: sick contacts Associated symptoms: sore throat Treatments prior to arrival: none Related Data Home Medications ?Medication ?Instructions ?Recorded ?Confirmed ibuprofen 600 mg tablet 600 mg PO Q8H PRN Pain 08/08/20 06/29/23 multivitamin-ferrous 1 tab PO BEDTIME 08/08/20 06/29/23 fumarate-folic acid 18 mg-400 mcg tablet Previous Rx's ?Medication ?Instructions ?Recorded ferrous sulfate 325 mg (65 mg 325 mg PO DAILY #30 tabs 03/16/21 iron) tablet cxnsnypqaf-wiqxlbiigzflx-pzxztigz 1 tab PO Q6H PRN haeadace #20 tabs 11/30/22 50 mg-325 mg-40 mg tablet albuterol sulfate 90 mcg/actuation 2 puff inhalation Q4-6H PRN 12/07/22 aerosol inhaler (ProAir HFA) shortness of breath or wheezing #8.5 grams cholecalciferol (vitamin D3) 125 125 mcg PO DAILY 90 days #90 caps 01/10/23 mcg (5,000 unit) capsule thiamine HCl (vitamin B1) 100 mg 100 mg PO DAILY #90 tabs 01/14/23 tablet progesterone micronized 200 mg 200 mg PO BEDTIME 10 days #30 caps 07/14/23 capsule (Prometrium) amoxicillin 500 mg capsule 500 mg PO BID 10 days #20 caps 07/10/24 fluconazole 150 mg tablet 150 mg PO Q3D 2 doses #2 tabs 07/10/24 Allergies Allergy/AdvReac Type Severity Reaction Status Date / Time No Known Allergies Allergy Verified 07/10/24 12:03 Review of Systems Review of Systems: Constitutional : No Fever, No Chills ENT/Mouth : No Hoarseness, pos sore throat, No Rhinorrhea Eyes: No Redness, No Discharge, No Vision Changes Cardiovascular : No Chest Pain, no SOB No Edema Respiratory : positive Cough, No Sputum, no Wheezing, Gastrointestinal : No Nausea, No Vomiting, No Diarrhea, No abdominal Pain Genitourinary : No Dysuria, No Hematuria Musculoskeletal : No joint pain, No Myalgias Skin : No rash Neuro : No Weakness, No Numbness, No Headache Psych : No anxiety, depression All other systems reviewed and are negative [facility] Past Medical History Attestation statement: The following information was validated with the patient. Source: old records reviewed Medical History Migraine PCOS (polycystic ovarian syndrome) Morbid obesity Scoliosis Surgical History Hx of wisdom tooth extraction Hx of tonsillectomy Family History Family History Mother Hypertension Father Family history unknown Social History Social History Alcohol intake: never Patient Tobacco Use Status: Never used Tobacco Physical Exam Vital Signs: Vital Signs: Last Vital Signs Temp 98.3 F 07/10/24 13:17 Pulse 60 07/10/24 13:17 Resp 16 07/10/24 13:17 BP 140/82 H 07/10/24 13:17 Pulse Ox 98 07/10/24 13:17 O2 Del Method Room Air 07/10/24 13:17 BMI result Body Mass Index 45.9 Appearance: Alert. Oriented X3. No acute distress. Eyes: Pupils equal, round and reactive to light. ENT: Pharynx moderate erythema, bilateral mild tonsil swelling with exudates, uvula is midline - normal voice no drooling, there are petechia as well on soft palate Neck: Normal inspection. Neck supple. CVS: Normal heart rate and rhythm. Pulses normal. Respiratory: No respiratory distress. Breath sounds normal. Abdomen: Soft and nontender. Skin: Skin warm and dry. Normal skin color. Normal skin turgor. Extremities: No lower extremity edema. No calf ttp Neuro: Oriented X 3. No motor deficit. No sensory deficit. CN2-12 intact Course Course Course Narrative: This is a Rapid Medical Exam performed in triage by Aylin Vela PA-C. Full HPI, ROS and PE to be performed by primary ED provider. 19 yo F with past medical history PCOS, migraines, presenting to the ED c/o sore throat x2 days with productive cough of mucus. Denies SOB/CP, fever/chills PE: Mild posterior oropharyngeal erythema. Uvula midline. Talking in complete sentences. Lungs CTA Plan: Viral, rapid strep, CXR Medical Decision Making Medical Decision Making MDM Narrative: 19 yo female with PMH of anemia, PCOS here with c/o sore throat and not feeling well exposed to her brother who also has strep throat - she has no signs of deeper space infection. She looks well overall but her exam is consistent with GAS pharyngitis - viral panel, strep swab, CXR ordered. anticipate treatment given clinical appearance Differential Diagnosis Differential Diagnoses: The differential diagnosis associated with the presentation includes viral syndrome, strep throat Admission/Observation Consideration of admission/observation: Escalation of care including admission/observation considered not toxic, no concern for deeper space infection stable for DC Lab Data [facility] Lab Attestation statement: I reviewed the patient's lab results. Labs: Lab Results 07/10/24 Range/Units 12:13 Influenza Type A (PCR) NEGATIVE (Negative) Influenza Type B (PCR) NEGATIVE (Negative) RSV RNA Qual (PCR) NEGATIVE (Negative) SARS-CoV-2 RNA (RT-PCR) NEGATIVE (Negative) S. pyogenes GrpA ALISON Negative (Negative) Independent Interpretation I performed an independent interpretation of an: Plain X-Ray (normal ) Radiology Impression Discussion of test interpretation with radiology: I have reviewed the radiologist's reading. External Record Review External record reviewed: Outpatient record Prescription Management I considered prescription management with: Antibiotic and Other Discharge Plan Discharge Clinical Impression: Pharyngitis Qualifiers: Pharyngitis/tonsillitis etiology: unspecified etiology Qualified Code(s): J02.9 - Acute pharyngitis, unspecified Patient Disposition: Home, Self-Care Instructions: Pharyngitis (ED), Viral Syndrome (ED) Additional Instructions: negative for covid, flu, rsv, no strep and normal chest xray based off your sick contact and the fact that your throat appears like strep we are going to treat you carry your inhaler return for any worsening symptoms or concerns such as increased chest pains / trouble breathing. rest and stay hydrated you can alternate tylenol and motrin for your symptoms throw away toothbrush after 24 hours On amoxicillin, softer bowel movements are to be expected. Call your provider if you move your bowels more than 4 times a day, your bowel movements are almost all liquid, or you get a rash.? Prescriptions: New amoxicillin 500 mg capsule 500 mg PO BID 10 Days Qty: 20 0RF fluconazole 150 mg tablet 150 mg PO Q3D Qty: 2 0RF Rx Instructions: may repeat second dose 72 hrs after first dose if symptoms persist No Action ferrous sulfate 325 mg (65 mg iron) tablet 325 mg PO DAILY Qty: 30 5RF cholecalciferol (vitamin D3) 125 mcg (5,000 unit) capsule 125 mcg PO DAILY 90 Days Qty: 90 1RF thiamine HCl (vitamin B1) 100 mg tablet 100 mg PO DAILY Qty: 90 0RF pabwyulmtl-pgtxwewscbchq-vyqw 50-325-40 mg tablet 1 tab PO Q6H PRN (Reason: haeadace) Qty: 20 0RF albuterol sulfate [ProAir HFA] 90 mcg/actuation HFA aerosol inhaler 2 puff inhalation Q4-6H PRN (Reason: shortness of breath or wheezing) Qty: 8.5 0RF Spectravite Advanced Formula 18-400 mg-mcg tablet 1 tab PO BEDTIME ibuprofen 600 mg tablet 600 mg PO Q8H PRN (Reason: Pain) progesterone micronized [Prometrium] 200 mg capsule 200 mg PO BEDTIME 10 Days Qty: 30 0RF Rx Instructions: Take the pill 1 tablet a day cyclically every month from day 15-24 day 1 being the 1st day of next menstrual cycle Stand Alone Forms: Work/School Release Print Language: Mohawk
[2024-07-10 12:29] LABS: IDNOW Serial# 58CA691E; Strep A Nucleic Acid Negative (Negative)
[2024-07-10 12:55] LABS: Influenza A PCR NEGATIVE (Negative); Influenza B PCR NEGATIVE (Negative); Resp Syncy Virus RNA Qual PCR NEGATIVE (Negative); SARS COV2 PCR INHOUSE NEGATIVE (Negative)
[2024-07-10 13:17] VITALS: BP 140/82; PULSE 60; RESP 16; TEMP 36.8; O2SAT 98
--- OUTSIDE RECORDS SUMMARY | 2024-07-10 13:33 | XMS_ITS | Encounter Summary ---
Author Organization [facility] Address [address] [place] [id number] Phone Care Team Providers Care Buffing Wheel Inspector Name Role Phone Sharron Garcia MD Primary Care Provider Encounter Details Date Type Department Care Team (Late st Contact Info) Description 03/16/2012 Documentation [facility] [place] [address] [place] [address] Family Medicine, Physician [address] [place], [place] [id number] Social History Tobacco Use Types Packs/Day Years Used Date Smoking Tobacco: Never Assessed Comments Unknown Sex and Gender Information Value Date Recorded Sex Assigned at Female 06/22/2023 2:33 PM EDT Legal Sex Female 5:05 PM EDT Gender Identity Female 02/04/2020 2:23 PM EST Sexual Orientation Lesbian or Ty 06/22/2023 2: 33 PM EDT documented as of this encounter Plan of Treatment Not on file documented as of this encounter Visit Diagnoses Not on filedocumented in this encounter Care Teams Buffing Wheel Inspector Relationship Specialty Start Date End Date Sharron Garcia MD [address] [place] [address] [place] [id number] PCP - General Pediatrics 05/24/18 05/15/24 documented as of this encounter
[2024-07-10 13:35] VITALS: BP 140/82; PULSE 60; RESP 16; TEMP 36.8; O2SAT 98
== END 2024-07-10 13:36 | disposition home or self-care (01) ==
PROVIDERS: Physician Assistant; Emergency Provider Emergency Medicine; PCP Pediatrics
DX: J02.9 Acute pharyngitis, unspecified (principal); R05.9 Cough, unspecified; R13.10 Dysphagia, unspecified; Z79.899 Other long term (current) drug therapy; Z03.818 Encounter for observation for suspected exposure to other biological agents ruled out
CPT/HCPCS: 0241U; 71046; 87651; 99282; 99283

== ENCOUNTER → 2024-07-10 12:03 | Outpatient (BNV) | payer OTHER, SELFPAY | PROVIDERS: PCP Pediatrics; Visit Provider Radiology Diagnostic Radiology | DX: R05.9 Cough, unspecified (principal) | CPT/HCPCS: 71046 ==

== ENCOUNTER 2024-07-28 03:07 | Emergency (ER) | payer OTHER, SELFPAY ==
--- NOTE | ~2024-07-28 | XR_ITS ---
CLINICAL HISTORY: pain Exam: AP, lateral, and swimmer's lateral view of the thoracic spine. Comparison: Chest x-ray July 10, 2024. Findings: Bony alignment of the thoracic vertebral bodies is anatomic. No fracture. Disc space heights are well preserved. Impression: No fracture. This document has been electronically signed by: Lg Williamson MD on 07/28/2024 08:14:28
--- NOTE | ~2024-07-28 | XR_ITS ---
CLINICAL HISTORY: pain Exam: AP, lateral, and spot lateral views of the lumbar spine. Comparison: None. Findings: Minimal to mild convex left mid lumbar curvature with apex at L2-3. Bony alignment is anatomic on the lateral views. No fracture. Disc space heights are well preserved. Impression: No fracture. Spinal curvature as above. This document has been electronically signed by: Lg Williamson MD on 07/28/2024 08:15:36
[2024-07-28 03:19] VITALS: BP 120/78; PULSE 88; RESP 20; TEMP 37.1; O2SAT 99; BMI 44.0
[2024-07-28 06:40] VITALS: BP 132/75; PULSE 70; RESP 18; TEMP 36.6; O2SAT 96
--- NOTE | 2024-07-28 07:00 | ED.BACK ---
HPI - Back Pain/Injury General Chief Complaint: Back Pain/Injury Stated Complaint: lower back pain Time Seen by Provider: 07/28/24 06:53 Source: patient and old records reviewed Mode of arrival: ambulatory Limitations: no limitations History of Present Illness ED Provider: BETTY SMITH Narrative: 19 yo female with PMH Of anemia, asthma, PCOS here with c/o chronic back pain for months but past 1.5 months it is much worse - hurts to walk and move. Is on her feet all day at work. NO IVDA, thinners, no b/b incontinence. She tries motrin and tylenol but no relief. MD elicited complaint: back pain Pertinent past history: prior back pain Onset (ago): month(s) Timing: progressively worsening Severity: moderate Quality: spasming and throbbing Location: lumbar spine Radiation: none Relieving factors: movement Context: unknown Associated symptoms: denies other symptoms Treatments prior to arrival: NSAIDS Work related injury: No Related Data Home Medications ?Medication ?Instructions ?Recorded ?Confirmed ibuprofen 600 mg tablet 600 mg PO Q8H PRN Pain 08/08/20 06/29/23 multivitamin-ferrous 1 tab PO BEDTIME 08/08/20 06/29/23 fumarate-folic acid 18 mg-400 mcg tablet Previous Rx's ?Medication ?Instructions ?Recorded ferrous sulfate 325 mg (65 mg 325 mg PO DAILY #30 tabs 03/16/21 iron) tablet fatnovibhz-fmzupksuchilo-jslgkoqm 1 tab PO Q6H PRN haeadace #20 tabs 11/30/22 50 mg-325 mg-40 mg tablet albuterol sulfate 90 mcg/actuation 2 puff inhalation Q4-6H PRN 12/07/22 aerosol inhaler (ProAir HFA) shortness of breath or wheezing #8.5 grams cholecalciferol (vitamin D3) 125 125 mcg PO DAILY 90 days #90 caps 01/10/23 mcg (5,000 unit) capsule thiamine HCl (vitamin B1) 100 mg 100 mg PO DAILY #90 tabs 01/14/23 tablet progesterone micronized 200 mg 200 mg PO BEDTIME 10 days #30 caps 07/14/23 capsule (Prometrium) amoxicillin 500 mg capsule 500 mg PO BID 10 days #20 caps 07/10/24 fluconazole 150 mg tablet 150 mg PO Q3D 2 doses #2 tabs 05/27/25 diazepam 5 mg tablet (Valium) 5 mg PO TID PRN muscle spasm #10 07/28/24 tabs lidocaine 5 % topical patch 1 patch topical DAILY #30 ea 07/28/24 Allergies Allergy/AdvReac Type Severity Reaction Status Date / Time No Known Allergies Allergy Verified 07/28/24 03:19 Review of Systems Review of Systems: Constitutional : No Weight loss, No Fever, No Chills, ENT/Mouth : No Hearing loss, No Ear Pain, No Nasal Congestion, No Sinus Pain, No Hoarseness, No sore throat, No Rhinorrhea, No Swallowing Difficulty Cardiovascular : No Chest Pain, No SOB Respiratory : No Cough, No Dyspnea Gastrointestinal : No Nausea, No Vomiting, No Diarrhea, No abdominal Pain, No Hematochezia, No Melena Genitourinary : No Dysuria, No Urinary Frequency, No Hematuria, No Urinary Incontinence, Musculoskeletal : positive back pain Skin : No Skin Lesions, No rash Neuro : No Weakness, No Numbness, No Paresthesias, no loss of bowel or bladder incontinence, no saddle anesthesia all other systems reviewed and are negative PMFSH Past Medical History Attestation statement: The following information was validated with the patient. Source: old records reviewed Medical History Migraine PCOS (polycystic ovarian syndrome) Morbid obesity Scoliosis Surgical History Hx of wisdom tooth extraction Hx of tonsillectomy Family History Family History Mother Hypertension Father Family history unknown Social History Social History Alcohol intake: never Patient Tobacco Use Status: Never used Tobacco Advance Directives: No Advance Directives Information Provided: Yes Physical Exam Vital Signs: Vital Signs: Last Vital Signs Temp 97.8 F 07/28/24 06:40 Pulse 70 07/28/24 06:40 Resp 18 07/28/24 06:40 BP 132/75 07/28/24 06:40 Pulse Ox 96 07/28/24 06:40 O2 Del Method Room Air 07/28/24 06:40 BMI result Body Mass Index 44.0 Appearance: Alert. Oriented X3. No acute distress. Eyes: Pupils equal, round and reactive to light. ENT: Pharynx normal. Neck: Normal inspection. Neck supple. CVS: Normal heart rate and rhythm. Pulses normal. Respiratory: No respiratory distress. Breath sounds normal. Abdomen: Soft and nontender. Back: ttp along bilateral lumbar paraspinals Skin: Skin warm and dry. Normal skin color. Normal skin turgor. Extremities: No lower extremity edema. No calf ttp Neuro: Oriented X 3. No motor deficit. No sensory deficit. CN2-12 intact, L5 5/5 bilaterally, SILT inner thighs Medications Administered Discontinued Medications Generic Name Dose Route Start Last Admin Trade Name Freq PRN Reason Stop Dose Admin Diazepam 5 mg 07/28/24 07:27 07/28/24 08:06 Diazepam 5 Mg Tablet PO 07/28/24 07:28 5 mg ONCE ONE Administration Ketorolac Tromethamine 30 mg 07/28/24 07:27 07/28/24 08:06 Ketorolac Tromethamine 30 Mg/Ml Vial IM 07/28/24 07:28 30 mg ONCE ONE Administration Medical Decision Making Medical Decision Making [facility] Narrative: 19 yo female with PMH Of anemia, asthma, PCOS here with c/o back pain for months but last 1.5 months it has been much worse. At this time based off her symptoms she has no red flags, she is neuro intact, will obtain xrays and start on pain control. Suspect sprain/strain. She has no cauda equina symptoms Differential Diagnosis Differential Diagnoses: The differential diagnosis associated with the presentation includes sprain, strain no signs of cauda equina Admission/Observation Consideration of admission/observation: Escalation of care including admission/observation considered can ambulate to the bathroom at this time stable for DC Lab Data [facility] Lab Attestation statement: I reviewed the patient's lab results. Independent Interpretation I performed an independent interpretation of an: Plain X-Ray (curvature) Radiology Impression Discussion of test interpretation with radiology: I have reviewed the radiologist's reading. External Record Review External record reviewed: Outpatient record Prescription Management I considered prescription management with: Pain Medication and Other Discharge Plan Discharge Clinical Impression: Thoracic back pain Qualifiers: Chronicity: acute Back pain laterality: bilateral Qualified Code(s): M54.6 - Pain in thoracic spine Strain of lumbar region Qualifiers: Encounter type: initial encounter Qualified Code(s): S39.012A - Strain of muscle, fascia and tendon of lower back, initial encounter Patient Disposition: Home, Self-Care Instructions: Low Back Strain (ED), Back Pain (ED) Additional Instructions: call your doctor for physical therapy or further management return for worsening pain, xrays shows mild curvature of the lower spine your doctor can monitor this alternate tylenol and motrin with muscle relaxer return for numbness, weakness, loss of control of bowel or bladder Findings: Bony alignment of the thoracic vertebral bodies is anatomic. No fracture. Disc space heights are well preserved. Impression: No fracture. Findings: Minimal to mild convex left mid lumbar curvature with apex at L2-3. Bony alignment is anatomic on the lateral views. No fracture. Disc space heights are well preserved. Impression: No fracture. Spinal curvature as above. Prescriptions: New lidocaine 5 % adhesive patch,medicated 1 patch topical DAILY Qty: 30 0RF Rx Instructions: leave on most painful area for up to 12 hrs diazepam [Valium] 5 mg tablet 5 mg PO TID PRN (Reason: muscle spasm) Qty: 10 0RF Rx Instructions: partial fill is okay No Action ferrous sulfate 325 mg (65 mg iron) tablet 325 mg PO DAILY Qty: 30 5RF cholecalciferol (vitamin D3) 125 mcg (5,000 unit) capsule 125 mcg PO DAILY 90 Days Qty: 90 1RF thiamine HCl (vitamin B1) 100 mg tablet 100 mg PO DAILY Qty: 90 0RF xjqqvtlwvn-vxwaowiovckkf-roxm 50-325-40 mg tablet 1 tab PO Q6H PRN (Reason: haeadace) Qty: 20 0RF albuterol sulfate [ProAir HFA] 90 mcg/actuation HFA aerosol inhaler 2 puff inhalation Q4-6H PRN (Reason: shortness of breath or wheezing) Qty: 8.5 0RF amoxicillin 500 mg capsule 500 mg PO BID 10 Days Qty: 20 0RF fluconazole 150 mg tablet 150 mg PO Q3D Qty: 2 0RF Rx Instructions: may repeat second dose 72 hrs after first dose if symptoms persist Spectravite Advanced Formula 18-400 mg-mcg tablet 1 tab PO BEDTIME ibuprofen 600 mg tablet 600 mg PO Q8H PRN (Reason: Pain) progesterone micronized [Prometrium] 200 mg capsule 200 mg PO BEDTIME 10 Days Qty: 30 0RF Rx Instructions: Take the pill 1 tablet a day cyclically every month from day 15-24 day 1 being the 1st day of next menstrual cycle Stand Alone Forms: Work/School Release Print Language: [place]
[2024-07-28] MEDS: diazePAM 5 MG TABLET PO (08:06)
[2024-07-28] MEDS: Ketorolac Tromethamine 30 MG/ML VIAL IM (08:06)
[2024-07-28 08:43] LABS: Appearance Urine Clear; Color Urine Yellow; Glucose Urine UA Negative (Negative); Leukocyte Esterase Urine Moderate (2+) (Negative); Nitrite Urine Negative (Negative); PH 5.5 (5.0-9.0); Specific Gravity - Urine 1.025 (1.005-1.025); UMIC TRIGGER UACC YES; Urine Blood Small (1+) (Negative); Urine Ketones Trace mg/dL (Negative); Urine Protein Trace mg/dL (Neg-Trace)
[2024-07-28 08:47] VITALS: BP 132/75; PULSE 70; RESP 18; TEMP 36.6; O2SAT 96
[2024-07-28 08:47] LABS: Bacteria Urine Trace (None Seen); Hyaline Casts Urine 0-2 /LPF (0-2); Squamous Epithelial Cell Urine 0-2 /HPF (0-2); UACC Culture Trigger YES; UPreg QC Valid YES; Urine Pregnancy NEGATIVE (NEGATIVE); WBC Urine >50 /HPF (0-5)
== END 2024-07-28 08:49 | disposition home or self-care (01) ==
PROVIDERS: Emergency Provider Emergency Medicine; PCP Pediatrics
DX: S39.012A Strain of muscle, fascia and tendon of lower back, initial encounter (principal); X58.XXXA Exposure to other specified factors, initial encounter; M54.6 Pain in thoracic spine; Y93.9 Activity, unspecified; Y92.9 Unspecified place or not applicable; Y99.9 Unspecified external cause status
CPT/HCPCS: 72072; 72100; 81001; 81025; 87086; 96372; 99284; J1885

== ENCOUNTER → 2024-07-28 07:02 | Outpatient (BNV) | payer OTHER, SELFPAY | PROVIDERS: Emergency Provider Emergency Medicine; PCP Pediatrics; Visit Provider Radiology Diagnostic Radiology | DX: M54.50 Low back pain, unspecified (principal); M54.6 Pain in thoracic spine | CPT/HCPCS: 72072; 72100 ==

== ENCOUNTER 2024-11-06 19:35 | Emergency (ER) | payer OTHER, SELFPAY ==
[2024-11-06 19:51] VITALS: BP 183/83; PULSE 79; RESP 15; TEMP 37.1; O2SAT 98; BMI 45.3
[2024-11-06 20:46] LABS: MANUAL DIFF FLAG NO
[2024-11-06 20:48] LABS: Hematocrit 40.2 % (37.0-47.0); Hemoglobin 13.3 g/dl (12.0-16.0); Imm Gran Abs Auto 0.05 X10*3/uL (0.00-0.03); Imm Gran Pct Auto 0.4 % (0.0-0.4); Lymphocytes Absolute Auto 1.4 X10*3/uL (1.2-4.9); Mean Corpuscular HGB Conc 33.1 g/dl (31.0-35.0); Mean Corpuscular Hemoglobin 26.4 pg (27.0-33.0); Mean Corpuscular Volume 79.9 fL (80.0-98.0); NRBC Abs Auto 0.000 X10*3/uL (0.0-0.012); NRBC Pct Auto 0.0 /100WBC (0.0-0.2); Platelet Count 342 X10*3/uL (160-400); Red Blood Count 5.03 X10*6/uL (4.20-5.50); White Blood Count 13.9 X10*3/uL (4.8-10.8)
[2024-11-06 21:01] LABS: COVID-19 Test Negative (Negative); IDNOW Serial# 55D5AD1C
[2024-11-06 21:05] LABS: IDNOW Serial# 58CA691E; Influenza B2 Negative (Negative)
[2024-11-06 21:08] LABS: Alanine Aminotransferase 60 U/L (0-31); Albumin Level 4.6 g/dL (3.5-5.0); Alkaline Phosphatase 93 U/L (39-117); Anion Gap 10 (12-20); Aspartate Amino Transferase 36 U/L (5-31); Blood Urea Nitrogen 11 mg/dL (9-16); Calcium 9.5 mg/dL (8.4-10.2); Carbon Dioxide 25 mmol/L (22-29); Chloride 110 mmol/L (96-108); Creatinine Clr Calc Pharmacy 190.3; Estimated Glomerular Filt Rate > 60; Lipase 84 U/L (8-78); Potassium 4.0 mmol/L (3.3-5.1); Sodium 141 mmol/L (135-145); Total Protein 7.8 g/dL (6.5-8.0)
[2024-11-06 22:57] VITALS: BP 147/84; PULSE 66; RESP 18; TEMP 37.1; O2SAT 97
--- NOTE | 2024-11-06 23:18 | ED.ABDPAIN ---
HPI - Abdominal Pain General Chief Complaint: Abdominal Pain Stated Complaint: N/V, abd pain, cold sweats, headache Time Seen by Provider: 11/06/24 23:17 Source: patient Mode of arrival: ambulatory Limitations: no limitations History of Present Illness ED Provider: Dr. Maximo Pickens HPI narrative: 19-year-old female with no significant past medical history who presents emergency department for evaluation of upper abdominal pain, nausea, vomiting and diarrhea x2 days. The patient states that she has had anywhere from 2-7 episodes of vomiting per day. She states she has also had 7-10 episodes of loose, watery, nonbloody diarrhea daily. She complains of upper abdominal, sharp, squeezing pain which is intermittent in 8/10 at its worst. She states she has not been able to hold down any food or fluid for the past 24 hours. She is feeling dizzy, lightheaded and weak. She denied fever, chills, chest pain, shortness of breath. Patient states that she is taking care of a her mother's boyfriend's dave kaurard. She states that both her mother and brother have been diagnosed with Salmonella which was felt to be caused by the a lizard. Related Data Home Medications ?Medication ?Instructions ?Recorded ?Confirmed ibuprofen 600 mg tablet 600 mg PO Q8H PRN Pain 08/08/20 06/29/23 multivitamin-ferrous 1 tab PO BEDTIME 08/08/20 06/29/23 fumarate-folic acid 18 mg-400 mcg tablet Previous Rx's ?Medication ?Instructions ?Recorded ferrous sulfate 325 mg (65 mg 325 mg PO DAILY #30 tabs 03/16/21 iron) tablet qknpedjmse-theihbndditzi-sbebglgx 1 tab PO Q6H PRN haeadace #20 tabs 11/30/22 50 mg-325 mg-40 mg tablet albuterol sulfate 90 mcg/actuation 2 puff inhalation Q4-6H PRN 12/07/22 aerosol inhaler (ProAir HFA) shortness of breath or wheezing #8.5 grams cholecalciferol (vitamin D3) 125 125 mcg PO DAILY 90 days #90 caps 01/10/23 mcg (5,000 unit) capsule thiamine HCl (vitamin B1) 100 mg 100 mg PO DAILY #90 tabs 01/14/23 tablet progesterone micronized 200 mg 200 mg PO BEDTIME 10 days #30 caps 07/14/23 capsule (Prometrium) amoxicillin 500 mg capsule 500 mg PO BID 10 days #20 caps 07/10/24 fluconazole 150 mg tablet 150 mg PO Q3D 2 doses #2 tabs 07/10/24 diazepam 5 mg tablet (Valium) 5 mg PO TID PRN muscle spasm #10 07/28/24 tabs lidocaine 5 % topical patch 1 patch topical DAILY #30 ea 07/28/24 ciprofloxacin HCl 500 mg tablet 500 mg PO Q12H 4 days #8 tabs 11/07/24 (Cipro) diphenhydramine HCl 25 mg capsule 50 mg (2 x 25 mg) PO Q6H PRN 11/07/24 headache, nausea, vomiting #20 caps loperamide 2 mg tablet (Imodium 2 mg PO Q4H PRN loose stool #20 11/07/24 A-D) tabs metoclopramide HCl 10 mg tablet 10 mg PO Q6H PRN nausea and 11/07/24 (Reglan) vomiting #14 tabs Allergies Allergy/AdvReac Type Severity Reaction Status Date / Time No Known Allergies Allergy Verified 11/06/24 19:53 Review of Systems Review of Systems Yes all other systems are reviewed and are negative [facility] Past Medical History [facility] Narrative: Social history: She denies tobacco, alcohol and drug use. Medical History Migraine PCOS (polycystic ovarian syndrome) Morbid obesity Scoliosis Surgical History Hx of wisdom tooth extraction Hx of tonsillectomy Family History Family History Mother Hypertension Father Family history unknown Social History Social History Alcohol intake: never Patient Tobacco Use Status: Never used Tobacco Smoked in Last 30 Days: No Use of substances other than those prescribed or required for medical reasons: No Advance Directives: No Do you have a plan to hurt others: No Plan Patient : No Physical Exam ED Vital Signs: Vital Signs - 24 hr 11/06/24 19:51 11/06/24 22:57 Temperature 98.8 F 98.7 F Pulse Rate 79 66 Respiratory Rate 15 18 Blood Pressure 183/83 H 147/84 H Pulse Oximetry 98 97 Oxygen Delivery Method Room Air Room Air BMI result Body Mass Index 45.3 Vital signs were normal Exam: General: Awake, alert in no distress Head: Normocephalic, atraumatic EENT: PERRL, sclera and conjunctiva are normal, mouth with no erythema or exudates Neck: Supple, no adenopathy Lung: breath sounds symmetric, no wheezing, no rales and no rhonchi Chest: symmetric movement, nontender Heart: regular rate and rhythm, normal S1, S2 no murmurs or rubs Abdomen: soft, moderate upper abdominal tenderness with no rebound, no voluntary or involuntary guarding nondistended, normal bowel sounds Back: no vertebral tenderness, no CVAT Extremities: no deformities, moves all extremities symmetrically, no edema Neuro: Awake, alert, oriented, normal speech, cranial nerves 2-12 intact, moves all extremities symmetrically Psych: Pleasant, cooperative Medical Decision Making Medical Decision Making MDM Narrative: 19-year-old female with no significant past medical history who presents emergency department for evaluation of upper abdominal pain, nausea, vomiting and diarrhea x2 days. The patient states that she has had anywhere from 2-7 episodes of vomiting per day. She states she has also had 7-10 episodes of loose, watery, nonbloody diarrhea daily. She complains of upper abdominal, sharp, squeezing pain which is intermittent in 8/10 at its worst. She states she has not been able to hold down any food or fluid for the past 24 hours. She is feeling dizzy, lightheaded and weak. She denied fever, chills, chest pain, shortness of breath.Patient states that she is taking care of a her mother's boyfriend's dave lizard. She states that both her mother and brother have been diagnosed with which was felt to be caused by the a lizard. Vital signs were normal. Exam revealed upper abdominal tenderness otherwise unremarkable. Differential diagnosis: ?Includes but is not limited to acute Salmonella, viral syndrome, electrolyte abnormalities, anemia, volume depletion, dehydration Course: 23:50 My independent interpretation patient's laboratory evaluation is as follows: WBC elevated 13,900. AST and ALT elevated 36 and 60. Lipase elevated 84. COVID 19 and influenza were negative. Quantitative beta-hCG was negative. Patient's presentation and exam is consistent with a diarrheal illness most likely caused by ate Salmonella since her mother and brother were diagnosed with Salmonella. I ordered normal saline IV x1 L, Reglan 10 mg IV, Benadryl 50 mg IV and Toradol 15 mg IV. Given the severity of her diarrhea I will treat her for salmonella with Levaquin 500 mg orally. 01:11 The patient is feeling significantly better after the above treatment. Patient was given prescriptions for Reglan 10 mg and Benadryl 50 mg to take q.6 hours as needed for nausea and vomiting. She was also given a prescription for Imodium 2 mg, 1 pill t.i.d. PRN diarrhea and Cipro 500 mg b.i.d. x4 days. She was given printed and verbal instructions discharged home Differential Diagnosis Differential Diagnoses: The differential diagnosis associated with the presentation includes (See above) Admission/Observation Consideration of admission/observation: Escalation of care including admission/observation considered (Yes) Lab Data MDM Lab Attestation statement: I reviewed the patient's lab results. 11/06/24 20:41 11/06/24 20:41 Labs: Lab Results 11/06/24 11/06/24 Range/Units 20:41 23:20 WBC 13.9 H (4.8-10.8) X10*3/uL RBC 5.03 (4.20-5.50) X10*6/uL Hgb 13.3 (12.0-16.0) g/dl Hct 40.2 (37.0-47.0) % MCV 79.9 L (80.0-98.0) fL MCH 26.4 L (27.0-33.0) pg MCHC 33.1 (31.0-35.0) g/dl RDW 14.7 (11.0-16.0) % Plt Count 342 (160-400) X10*3/uL MPV 9.5 (9.4-12.3) fL Immature Gran % (Auto) 0.4 (0.0-0.4) % Neut % (Auto) 81.9 H (45-73) % Lymph % (Auto) 9.7 L (20-40) % [place] % (Auto) 6.7 (2-11) % Eos % (Auto) 1.1 (0-4) % Baso % (Auto) 0.2 (0-2) % Lymph # (Auto) 1.4 (1.2-4.9) X10*3/uL [place] # (Auto) 0.9 (0.1-1.2) X10*3/uL Eos # (Auto) 0.2 (0.0-0.4) X10*3/uL Baso # (Auto) 0.0 (0.0-0.2) X10*3/uL Abs Immat Gran (auto) 0.05 H (0.00-0.03) X10*3/uL Absolute Neuts (auto) 11.4 H (2.0-8.3) x10*3/uL Absolute Nucleated RBC 0.000 (0.0-0.012) X10*3/uL Nucleated RBC % (auto) 0.0 (0.0-0.2) /100WBC Sodium 141 (135-145) mmol/L Potassium 4.0 (3.3-5.1) mmol/L Chloride 110 H (96-108) mmol/L Carbon Dioxide 25 (22-29) mmol/L Anion Gap 10 L (12-20) BUN 11 (9-16) mg/dL Creatinine 0.66 (0.5-1.4) mg/dL Estim Creat Clear Calc 190.3 Estimated GFR > 60 Random Glucose 100 (60-115) mg/dL Calcium 9.5 (8.4-10.2) mg/dL Total Bilirubin 0.9 (0.0-1.0) mg/dL AST 36 H (5-31) U/L ALT 60 H (0-31) U/L Alkaline Phosphatase 93 (39-117) U/L Total Protein 7.8 (6.5-8.0) g/dL Albumin 4.6 (3.5-5.0) g/dL Lipase 84 H (8-78) U/L Beta HCG, Quant < 2 mIU/mL Urine Color Yellow Urine Appearance Cloudy Urine pH 5.5 (5.0-9.0) Ur Specific [place] >= 1.030 H (1.005-1.025) Urine Protein Trace (Neg-Trace) mg/dL Urine Glucose (UA) Negative (Negative) mg/dL Urine Ketones Negative (Negative) mg/dL Urine Blood Trace H (Negative) Urine Nitrite Negative (Negative) Ur Leukocyte Esterase Moderate (2+) H (Negative) Urine RBC 3-5 H (0-2) /HPF Urine WBC >50 H (0-5) /HPF Ur Squamous Epith Cells 0-2 (0-2) /HPF Urine Bacteria Trace (None Seen) Hyaline Casts 0-2 (0-2) /LPF COVID-19 (DORIS) Negative (Negative) COVID-19 Clin Com See Note Influenza Type A (ALISON) Negative (Negative) Influenza Type B (ALISON) Negative (Negative) Influenza A & B Note See Note Prescription Management I considered prescription management with: Antibiotic (Ciprofloxacin) and Other (Antiemetic: Reglan/Benadryl, antidiarrheal: Imodium) Medications Administered Discontinued Medications Generic Name Dose Route Start Last Admin Trade Name Freq PRN Reason Stop Dose Admin Diphenhydramine HCl 50 mg 11/06/24 23:44 11/06/24 23:53 Diphenhydramine Hcl 50 Mg/Ml Vial IVPUSH 11/06/24 23:45 50 mg ONCE STA Administration Sodium Chloride 1,000 mls @ 999 mls/hr 11/06/24 23:44 11/06/24 23:52 Ns IV 11/07/24 00:44 999 mls/hr .Q1H1M STA Administration Ketorolac Tromethamine 15 mg 11/06/24 23:52 11/07/24 00:04 Ketorolac Tromethamine 15 Mg/Ml Vial IVPUSH 11/06/24 23:53 15 mg ONCE STA Administration Levofloxacin 500 mg 11/06/24 23:44 11/06/24 23:52 Levofloxacin 500 Mg Tablet PO 11/06/24 23:45 500 mg ONCE ONE Administration Metoclopramide HCl 10 mg 11/06/24 23:44 11/06/24 23:53 Metoclopramide Hcl 10 Mg/2 Ml Vial IVPUSH 11/06/24 23:45 10 mg ONCE STA Administration Discharge Plan Discharge Clinical Impression: Salmonella infection, Volume depletion Nausea & vomiting Qualifiers: Vomiting type: unspecified Qualified Code(s): R11.2 - Nausea with vomiting, unspecified Diarrhea Qualifiers: Diarrhea type: infectious Qualified Code(s): A09 - Infectious gastroenteritis and colitis, unspecified Abdominal pain Qualifiers: Abdominal location: epigastric Qualified Code(s): R10.13 - Epigastric pain Patient Disposition: Home, Self-Care Additional Instructions: Your blood work revealed an elevated white blood cell count which is consistent with an infection. You had a very mild elevation in your liver tests (AST and ALT), most likely due to dehydration. The rest of your blood work was unremarkable, your COVID 19 and influenza tests were negative, your test was negative You most likely have a salmonella infection which is causing your abdominal pain, nausea, vomiting and diarrhea. You most likely caught this from your bebetoefayen lizard's poop. Salmonella is transmitted from touching the lizard poop and then touching your mouth.It is important that you wash your hands with warm soapy water for at least 1-2 minutes after you handle the lizard. Take ciprofloxacin 500 mg pills, 1 pill every 12 hours for 4 days. Take your next dose tomorrow evening. For diarrhea I want you to take Imodium 2 mg pills. ?Take 2 pills every 4 hours as needed for loose diarrheal stools. Take Reglan (metoclopramide) 10 mg pills, 1 pill every 6 hours with Benadryl 25 mg pills, 2 pills every 6 hours as needed for nausea and vomiting. Increase your fluid intake to prevent dehydration Follow-up with your doctor in 2 days. Please return to the emergency department if your symptoms get worse or if you develop any symptoms that are concerning to you. Prescriptions: New loperamide [Imodium A-D] 2 mg tablet 2 mg PO Q4H PRN (Reason: loose stool) Qty: 20 0RF ciprofloxacin HCl [Cipro] 500 mg tablet 500 mg PO Q12H 4 Days Qty: 8 0RF diphenhydramine HCl 25 mg capsule 50 mg PO Q6H PRN (Reason: headache, nausea, vomiting) Qty: 20 0RF metoclopramide HCl [Reglan] 10 mg tablet 10 mg PO Q6H PRN (Reason: nausea and vomiting) Qty: 14 0RF No Action ferrous sulfate 325 mg (65 mg iron) tablet 325 mg PO DAILY Qty: 30 5RF cholecalciferol (vitamin D3) 125 mcg (5,000 unit) capsule 125 mcg PO DAILY 90 Days Qty: 90 1RF thiamine HCl (vitamin B1) 100 mg tablet 100 mg PO DAILY Qty: 90 0RF kkteyjbfst-gjmkdfgmopmir-zoxg 50-325-40 mg tablet 1 tab PO Q6H PRN (Reason: haeadace) Qty: 20 0RF albuterol sulfate [ProAir HFA] 90 mcg/actuation HFA aerosol inhaler 2 puff inhalation Q4-6H PRN (Reason: shortness of breath or wheezing) Qty: 8.5 0RF amoxicillin 500 mg capsule 500 mg PO BID 10 Days Qty: 20 0RF fluconazole 150 mg tablet 150 mg PO Q3D Qty: 2 0RF Rx Instructions: may repeat second dose 72 hrs after first dose if symptoms persist lidocaine 5 % adhesive patch,medicated 1 patch topical DAILY Qty: 30 0RF Rx Instructions: leave on most painful area for up to 12 hrs diazepam [Valium] 5 mg tablet 5 mg PO TID PRN (Reason: muscle spasm) Qty: 10 0RF Rx Instructions: partial fill is okay Spectravite Advanced Formula 18-400 mg-mcg tablet 1 tab PO BEDTIME ibuprofen 600 mg tablet 600 mg PO Q8H PRN (Reason: Pain) progesterone micronized [Prometrium] 200 mg capsule 200 mg PO BEDTIME 10 Days Qty: 30 0RF Rx Instructions: Take the pill 1 tablet a day cyclically every month from day 15-24 day 1 being the 1st day of next menstrual cycle Print Language: Danish
[2024-11-06 23:26] LABS: Appearance Urine Cloudy; Glucose Urine UA Negative (Negative); PH 5.5 (5.0-9.0); Specific Gravity - Urine >= 1.030 (1.005-1.025); UMIC TRIGGER UA YES
--- OUTSIDE RECORDS SUMMARY | 2024-11-06 23:56 | XMS_ITS | Encounter Summary ---
Author Organization [facility] Address [address] [place] [address] Phone Care Team Providers Care Jewelry Polisher Name Role Phone Sharron Garcia MD Primary Care Provider Encounter Details Date Type Department Care Team (Late st Contact Info) Description 08/06/2016 Documentation [facility] Family Medicine [address] [place] [address] Family Medicine, Physician [address] [place], [place] [phone] Social History Tobacco Use Types Packs/Day Years [...] on filedocumented in this encounter Care Teams Jewelry Polisher Relationship Specialty Start Date End Date Sharron Garcia MD [address] [place] [address] [place] [address] PCP - General Pediatrics 05/24/18 05/15/24 documented as of this encounter
--- OUTSIDE RECORDS SUMMARY | 2024-11-06 23:56 | XMS_ITS | Encounter Summary ---
Author Organization [facility] Address [address] [place] [address] Phone Care Team Providers Care Dry Kiln Burner Name Role Phone Sharron Garcia MD Primary Care Provider [phone] Reason for Visit * Reason Comments Med Refill Encounter Details Date Type Department Care Team (Late st Contact Info) Description 07/08/2018 Refill [facility] - [address] [address] Helena Harrell NP Vitamin D deficiency Social History Tobacco Use Types Packs/Day Years Used Date Smoking Tobacco: Never Smokeless Tobacco: Never Alcohol Use Standard Drinks/Week Comments Never 0 (1 standard drink = 0.6 oz pur e alcohol) Hunger/Food Answer Date Recorded No 05/16/2018 Stable Housing Answer Date Recorded 0 05/16/2018 Transportation Concerns Answer Date Rec orded No 05/16/2018 Hazards in Home Answer Date Recorded Yes 05/16/2018 Financing Utilities Answer Date Recorde d No 05/16/2018 Safety at Home Answer Date Recorded No 05/16/2018 Outside Support Answer Date Recorded No 05/16/2018 Understanding Health Concerns Answer Da te Recorded No 05/16/2018 Financing Health Concerns Answer Date R ecorded No 05/16/2018 Missing School or Work Answer Date Dale rded No 05/16/2018 Comments No Sex and Gender Information Value Date Recorded Sex Assigned at Female 06/22/2023 2:33 PM EDT Legal Sex Female 5:05 PM EDT Gender Identity Female 02/04/2020 2:23 PM EST Sexual Orientation Lesbian or Ty 06/22/2023 2: 33 PM EDT documented as of this encounter Miscellaneous Notes * Telephone Encounter - Helena Harrell NP - 07/17/2018 12:57 PM EDT Needs to get Vit D3 level repeated so we can determine which strength to maintain her on. Spoke with Mom and they will come in after school for lab test. * Telephone Encounter - Helena Harrell NP - 07/17/2018 12:54 PM EDT Called Mom. She was not the caller requesting vit d refill. Discussed that she needs to come in for repeat D3 level and then will determine which strength to keep her on. Mom understands and agrees. * Telephone Encounter - Helena Harrell NP - 07/17/2018 12:48 PM EDT Needs to return for repeat vitamin D level to make sure she is absorbing it well. If so, then will continue on a lesser daily dose. * Telephone Encounter - Laura Subramanian LPN - 07/14/2018 9:21 AM EDT I am going to forward this to Rebecca for Tuesday. EH * Telephone Encounter - Sharron Garcia MD - 07/11/2018 1:22 PM EDT Laura - it looks like this med was to be taken for 6 weeks then a return visit was to be made. Can you call the pt and make appt for a follow-up? Thanks. PPP * Telephone Encounter - Laura Subramanian LPN - 07/11/2018 1:17 PM EDT Pharm fax refill request vit D. EH documented in this encounter Plan of Treatment Not on file documented as of this encounter Visit Diagnoses Diagnosis Vitamin D deficiency documented in this encounter Care Teams Dry Kiln Burner Relationship Specialty Start Date End Date Sharron Garcia MD [address] [place] [address] PRINCESS Green [address] PCP - General Pediatrics 05/24/18 05/15/24 documented as of this encounter
--- OUTSIDE RECORDS SUMMARY | 2024-11-06 23:56 | XMS_ITS | Encounter Summary ---
Author Organization [facility] Address [address] [place] [address] Phone Care Team Providers Care Trim Sawyer Name Role Phone Sharron Garcia MD Primary Care Provider Encounter Details Date Type Department Care Team (Late st Contact Info) Description 09/30/2016 Conversion Encounter [facility] [place] [address] [place] [address] Social History Tobacco Use Types Packs/Day Years [...] on filedocumented in this encounter Care Teams Trim Sawyer Relationship Specialty Start Date End Date Sharron Garcia MD [address] [place] [address] PCP - General Pediatrics 05/24/18 05/15/24 documented as of this encounter
--- OUTSIDE RECORDS SUMMARY | 2024-11-06 23:56 | XMS_ITS | Encounter Summary ---
Author Organization [facility] Address [address] [place] [address] Phone Care Team Providers Care [employer] Name Role Phone Sharron Garcia MD Primary Care Provider Encounter Details Date Type Department Care Team (Late st Contact Info) Description 05/21/2016 Documentation [facility] Family Medicine [address] [place] [address] Family Medicine, Physician [address] [place], [place] [phone] Social History Tobacco Use Types Packs/Day Years [...] on filedocumented in this encounter Care Teams [employer] Relationship Specialty Start Date End Date Sharron Garcia MD [address] [place] [address] [place] [address] PCP - General Pediatrics 05/24/18 05/15/24 documented as of this encounter
--- OUTSIDE RECORDS SUMMARY | 2024-11-06 23:56 | XMS_ITS | Encounter Summary ---
Author Organization [facility] Address [address] [place] [address] Phone Care Team Providers Care Daylight Driller Name Role Phone Sharron Garcia MD Primary Care Provider [phone] Encounter Details Date Type Department Care Team (Late st Contact Info) Description 03/16/2012 Documentation [facility] [place] Family Medicine [address] [place] [address] Family Medicine, Physician [address] [place], [place] [phone] Social History Tobacco Use Types Packs/Day Years [...] on filedocumented in this encounter Care Teams Daylight Driller Relationship Specialty Start Date End Date Sharron Garcia MD [address] [place] [address] [place] [address] PCP - General Pediatrics 05/24/18 05/15/24 documented as of this encounter
--- OUTSIDE RECORDS SUMMARY | 2024-11-06 23:56 | XMS_ITS | Encounter Summary ---
Author Organization [facility] Address [address] [place] [address] Phone Care Team Providers Care [employer] Worker Name Role Phone Sharron Garcia MD Primary Care Provider Encounter Details Date Type Department Care Team (Late st Contact Info) Description 07/09/2016 Documentation [facility] [place] Family Medicine [address] [place] [address] Family Medicine, Physician [address] [place], [place] [phone] Social History Tobacco Use Types Packs/Day Years [...] on filedocumented in this encounter Care Teams [employer] Worker Relationship Specialty Start Date End Date Sharron Garcia MD [address] [place] [address] [place] [address] PCP - General Pediatrics 05/24/18 05/15/24 documented as of this encounter
--- OUTSIDE RECORDS SUMMARY | 2024-11-06 23:56 | XMS_ITS | Encounter Summary ---
Author Organization [facility] Address [address] [place] [phone] Phone Care Team Providers Care Meat Service Team Member Name Role Phone Sharron Garcia MD Primary Care Provider [phone]- [phone] Reason for Visit * Reason Comments Med Refill Encounter Details Date Type Department Care Team (Late st Contact Info) Description 12/05/2022 Refill [facility] [place] [address] [place] [address] Sharron Garcia MD [address] [place] [address] Gastroesophageal reflux disease, unspecified whether esophagitis present Social History Tobacco Use Types Packs/Day Years Used Date Smoking Tobacco: Never Smokeless Tobacco: Never Alcohol Use Standard Drinks/Week Comments Never 0 (1 standard drink = 0.6 oz pur e alcohol) Hunger/Food Answer Date Recorded In the last 12 months, did y ou or your family ever eat less than you felt you should because there wasn't enough money for food? No 04/12/2022 Stable Housing Answer Date Recorded Are you worried that in the next 2 months you may not have stable housing? No 04/12/2022 Transportation Concerns Answer Date Rec orded In the last 12 months, have you or your family ever had to go without healthcare because you didn't have a way to get there? No 04/12/2022 Hazards in Home Answer Date Recorded Think about the place you li ve. Do you have problems with any of the following? Pests (mice or roaches), mold, no/not working smoke detectors, water leaks, no window guards. No 2022 Financing Utilities Answer Date Recorde d In the last 12 months, has t he [employer], gas, oil, or water company threatened to shut off your services in your home? No 04/12/2022 Safety at Home Answer Date Recorded Are you or your family worried about feeling saf e in your home? No 04/12/2022 Outside Support Answer Date Recorded Do you feel that you need mo re support from other people or programs to help you care for yourself or your family? No 04/12/2022 Understanding Health Concerns Answer Da te Recorded Do you need help understandi ng your or your child's healthcare needs (diagnosis, medications, plan, etc.)? No 04/12/2022 Financing Health Concerns Answer Date R ecorded In the last 12 months, was t here a time when your child needed to see a doctor or get medications or supplies but could not because of cost? No 04/12/2022 Missing School or Work Answer Date Dale rded Did you or your child miss s chool or work because of a health problem that could have been avoided? No 04/12/2022 Comments No Sex and Gender Information Value Date Recorded Sex Assigned at Female 06/22/2023 2:33 PM EDT Legal Sex Female 5:05 PM EDT Gender Identity Female 02/04/2020 2:23 PM EST Sexual Orientation Lesbian or Ty 06/22/2023 2: 33 PM EDT documented as of this encounter Miscellaneous Notes * Telephone Encounter - Sharron Garcia MD - 12/06/2022 12:46 PM EDT Pt no longer on Omeprazole. PPP * Telephone Encounter - Laura Subramanian LPN - 12/06/2022 10:11 AM EDT Pharm requesting refill omeprazole EH documented in this encounter Plan of Treatment Not on file documented as of this encounter Visit Diagnoses Diagnosis Gastroesophageal reflux disease, unspecified whether esophagitis present documented in this encounter Care Teams Meat Service Team Member Relationship Specialty Start Date End Date Sharron Garcia MD [address] [facility] [place] [address] PCP - General Pediatrics 05/24/18 05/15/24 documented as of this encounter
--- OUTSIDE RECORDS SUMMARY | 2024-11-06 23:56 | XMS_ITS | Encounter Summary ---
Author Organization [facility] Address [address] [place] [address] Phone Care Team Providers Care [employer] Name Role Phone Sharron Garcia MD Primary Care Provider Encounter Details Date Type Department Care Team (Late st Contact Info) Description 05/18/2016 Documentation [facility] [place] [facility] [address] [place] [address] Family Medicine, Physician [address] [place], [place] [id number] Social History Tobacco Use Types Packs/Day Years [...] on filedocumented in this encounter Care Teams As[employer]er [employer] Relationship Specialty Start Date End Date Sharron Garcia MD [address] [place] [address] [place] [address] PCP - General Pediatrics 05/24/18 05/15/24 documented as of this encounter
--- OUTSIDE RECORDS SUMMARY | 2024-11-06 23:56 | XMS_ITS | Clinical Summary ---
Author Organization [facility] Address [address] [place] [address] Phone Care Team Providers Care Supply Room Clerk Name Role Phone Unavailable Primary Care Provider Unavailabl e Allergies Active Allergy Reactions Criticality Noted Date Comments Environmental 07/05/2019 Seasonal Medications ibuprofen 600 MG tablet TAKE 1 TABLET 4 TIMES DAILY WITH MEALS NEEDED. 1 Active ferrous sulfate 325 (65 Fe) MG tablet 1 Active acetaminophen 325 MG tablet 1 Active Multiple Vitamins-Minera ls (Centrum Women) tabletIndicatio ns:Poor diet Take 1 tablet by mouth daily. 90 tablet 3 3 Active Ventolin HFA 108 (90 Base) MCG/ACT inhaler INHALE 2 PUFFS EVERY 4 TO 6 HOURS NEEDED FOR SHORTNESS OF BREATH OR FOR WHEEZE 3 Active Active Problems Problem Noted Date Diagnosed Date Gastroesophageal reflux disease 09/09/2022 Overview (09/09/2022): Resolved with Omeprazole July 2022 - advised to take until symptom free for a month PTSD (post-traumatic stress disorder) 06/08/2022 Anxiety 04/28/2022 Overview (06/02/2022): Seeing [facility] in office Current moderate episode of major depressive disorder without prior episode 04/12/2022 Overview (06/23/2022): 04/12/22; WHO completed. F/u scheduled with Vicki. Greco to be determined. Denny 04/26/22 - Follow-up with additional assessment and background. Pt has a history of trauma as well as depression and current stressors with negative parent-child relationship. She also struggles with anxiety. [facility] will bridge pt to ongoing outpatient services. 06/08/22 - Pt has an intake appt. At [facility] on 06/14/22 06/23/22 - Pt has connected with a therapist at [facility] and will follow-up with services through [facility]. No appointment scheduled with [facility]. Assessment & Plan (06/23/2022 2:33 PM EDT): PHQ9 screening completed on 04/12/22 and symptoms identified at consult support diagnosis related to depressive disorder. Symptoms have been persistent since the age of 8, are experienced most days of the week and have impacted social and daily functioning. Follow up interventions focus on processing triggers and developing coping strategies would be of benefit to support identified needs, other referrals will be discussed and completed as necessary. PLAN: Follow up with [facility]; In office eval was scheduled, Jyoti is aware that appt can be scheduled in office or virtual. Pt has an intake with [facility] to bridge to outpatient services. Behavioral Recommendations: Contact [facility] if there is any safety concern Attend to scheduled appt Bridge to outpatient services Learn coping strategies to begin to deal with anxiety and depression Provide support in following up medically with weight concerns. Assessment & Plan (06/08/2022 3:00 PM EDT): PHQ9 screening completed on 04/12/22 and symptoms identified at consult support diagnosis related to depressive disorder. Symptoms have been persistent since the age of 8, are experienced most days of the week and have impacted social and daily functioning. Follow up interventions focus on processing triggers and developing coping strategies would be of benefit to support identified needs, other referrals will be discussed and completed as necessary. PLAN: Follow up with [facility]; In office eval was scheduled, Jyoti is aware that appt can be scheduled in office or virtual. Pt has an intake with [facility] to bridge to outpatient services. Behavioral Recommendations: Contact [facility] if there is any safety concern Attend to scheduled appt Bridge to outpatient services Learn coping strategies to begin to deal with anxiety and depression Provide support in following up medically with weight concerns. Assessment & Plan (05/19/2022 12:55 PM EDT): PHQ9 screening completed today 04/12/22 and symptoms identified at consult support diagnosis related to depressive disorder. Symptoms have been persistent since the age of 8, are experienced most days of the week and have impacted social and daily functioning. Follow up interventions focus on processing triggers and developing coping strategies would be of benefit to support identified needs, other referrals will be discussed and completed as necessary. PLAN: Follow up with [facility]; In office eval was scheduled, Jyoti is aware that appt can be scheduled in office or virtual. Behavioral Recommendations: Contact [facility] if there is any safety concern Attend to scheduled appt Bridge to outpatient services Learn coping strategies to begin to deal with anxiety and depression Provide support in following up medically with weight concerns. Assessment & Plan (04/28/2022 5:50 PM EDT): PHQ9 screening completed today 04/12/22 and symptoms identified at consult support diagnosis related to depressive disorder. Symptoms have been persistent since the age of 8, are experienced most days of the week and have impacted social and daily functioning. Follow up interventions focus on processing triggers and developing coping strategies would be of benefit to support identified needs, other referrals will be discussed and completed as necessary. PLAN: 1. Follow up with [facility]; In office eval was scheduled, Jyoti is aware that appt can be scheduled in office or virtual. 2. Behavioral Recommendations: a. Contact [facility] if there is any safety concern b. Attend to scheduled appt c. Bridge to outpatient services d. Learn coping strategies to begin to deal with anxiety and depression e. Provide support in following up medically with weight concerns. Assessment & Plan (04/12/2022 5:13 PM EST): PHQ9 screening completed today 04/12/22 and symptoms identified at consult support diagnosis related to depressive disorder. Symptoms have been persistent since the age of 8, are experienced most days of the week and have impacted social and daily functioning. Follow up interventions focus on processing triggers and developing coping strategies would be of benefit to support identified needs, other referrals will be discussed and completed as necessary. PLAN: 1. Follow up with [facility]; In office eval was scheduled, Jyoti is aware that appt can be scheduled in office or virtual. 2. Behavioral Recommendations: a. Contact [facility] if there is any safety concern b. Attend to scheduled appt History of COVID-19 02/17/2021 PCOS (polycystic ovarian syndrome) 10/01/2020 Overview (10/01/2020): Seen by [facility] Vitamin D deficiency 07/02/2020 Overview (07/02/2020): 06/2020 Vit D - 19 rx vit D 2000 unit/day ordered and recommended BMI (body mass index), pediatric, > 99% for age 0507/01/2020 Overview (04/12/2022): Ongoing weight gain. Pos family history for type 2 diabetes Assessment & Plan (07/01/2020 4:19 PM EDT): Ongoing weight gain. Neg workup for PCOS accucheck glu - 117 Hgb A1c ordered Psychosocial stressors 07/01/2020 Overview (07/01/2020): Mom with ? Bleeding disorder, precancerous polyp found on colonoscopy. Father with thyroid cancer that has spread ? Mom not sure Assessment & Plan (07/01/2020 5:56 PM EDT): Mom with ? Bleeding disorder, precancerous polyp found on colonoscopy. Father with thyroid cancer that has spread ? Mom not sure Constipation 10/17/2018 Overview (10/17/2018): Difficult BMs, having periumbilical abdominal pain. Assessment & Plan (07/01/2020 4:19 PM EDT): Given hx of constipation, mom says anemia, test for celiac done. Assessment & Plan (10/17/2018 3:40 PM EDT): Trial of miralax 1 cap qd Complex care coordination 05/16/2018 Resolved Problems Problem Noted Date Diagnosed Date Resolved Date Dizzy spells 07/01/2020 04/12/2022 Overview (07/01/2020): multiple concerns. normal blood sugar here. feels fatigued and dizzy. screening labs ordered. to follow up with primary to discuss further. Assessment & Plan (11/04/2020 1:41 PM EDT): Follow up with Assessment & Plan (07/01/2020 5:55 PM EDT): multiple concerns. Pt here today because school nurse concerned that Pt seems dizzy and fatigued a lot. Worried about blood sugar. normal blood sugar via accucheck here. Mom with multiple concerns re possible anemia, vit D deficiency, fam hx diabetes, irregular menses, father with worsening thyroid CA, mom with blood disorder/clotting disorder, etc. screening labs ordered. To follow up with primary to discuss further. To drink lots of fluids. Menorrhagia with regular cycle 10/13/2018 10/17/2018 Overview (10/13/2018): X 1 month so far. Recent weight gain Assessment & Plan (10/17/2018 3:31 PM EDT): Resolved x the last 4 days. May need to check PT/PTT/[place] INB. Consider refer to [facility]. Assessment & Plan (10/13/2018 4:18 PM EDT): Check labs to include PCOS work up. Immunizations Immunization Administration Dates Next Due COVID-19 Pfizer, bivalent, 12+ years 11/16/2021 COVID-19 Vaccine Moderna, se asonal, 12+ years 01/10/2024,06/22/2023 DTaP 5 05/16/2007, 5,2003,08/20,2003 H1N1 02/28/2009,01/08/2009 HPV Vaccine 9 Valent 04/12/2016,02/04/2015 Hep A, ped/adol 12/12/2013,09/03/2010 Hep B, ped/adol 02/05/2004,2003,2003 Hib (HbOC) 07/21/2004, 4,2003,06/09 IPV 05/16/2007, 4,2003,06/09 Influenza 11/07/2012,01/15/2010 Influenza Split 01/15/2010 Influenza, injectable, MDCK, preservative free, quadrivalent 04/12/2016 Influenza, injectable, quadrivalent 02/04/2015,1 Influenza, injectable, quadr ivalent, preservative free 11/10/2022,11/16/2021,04/08/2021,01/14,10/25/2018,05/16/2018 Influenza, injectable, trivalent 017,02/04/2015,12/12/2013,02/28,01/08/2009,02/05/2004 Influenza, injectable, triva lent, preservative free 01/10/2024 Influenza, intradermal, quad rivalent, preservative free 11/16/2016 Influenza, intranasal, quadrivalent 11/07/2012 MMR 04/14/2004 MMRV 05/16/2007 Meningococcal B Trumenba 04/08/2021,08/04/2020 Meningococcal Conj (Menactra) MCV4P 07/05/2019,1 04/07/2014 Pneumococcal Conjugate 07/21/2004,2003,2003,06/09 Tdap 02/04/2015 Varicella 04/14/2004 Family History Medical History Relation Name Comments Anxiety disorder Half-Sister Dandre Michele Asthma Half-Sister Dandre Michele Depression Half-Sister Dandre Michele Anxiety disorder Mother Trudy Allen Depression Mother Trudy Allen Hypertension Mother Trudy Allen Migraines Mother Trudy Allen Relation Name Status Comments Father Alive Father: Alive a nd well Half-Brother Slim Allen Alive Half-Sister Dandre Michele Alive Sister: Asth ma Mother Trudy Allen Alive Mother: abnl pa p smear Other Family history of Migraines, No family history of Dental caries, No family history of Thrombophilia, No family history of Sudden /AR under age 55, No family history of CVA (Stroke), No family history of Heart disease Social History Tobacco Use Types Packs/Day Years Used Date Smoking Tobacco: Never Smokeless Tobacco: Never Alcohol Use Standard Drinks/Week Comments Never 0 (1 standard drink = 0.6 oz pur e alcohol) Hunger/Food Answer Date Recorded In the last 12 months, did y ou or your family ever eat less than you felt you should because there wasn't enough money for food? No 06/22/2023 Stable Housing Answer Date Recorded Are you worried that in the next 2 months you may not have stable housing? No 06/22/2023 Transportation Concerns Answer Date Rec orded In the last 12 months, have you or your family ever had to go without healthcare because you didn't have a way to get there? No 06/22/2023 Hazards in Home Answer Date Recorded Think about the place you li ve. Do you have problems with any of the following? Pests (mice or roaches), mold, no/not working smoke detectors, water leaks, no window guards. No 2023 Financing Utilities Answer Date Recorde d In the last 12 months, has t he electric, gas, oil, or water company threatened to shut off your services in your home? No 06/22/2023 Safety at Home Answer Date Recorded Are you or your family worried about feeling saf e in your home? No 06/22/2023 Outside Support Answer Date Recorded Do you feel that you need mo re support from other people or programs to help you care for yourself or your family? No 06/22/2023 Understanding Health Concerns Answer Da te Recorded Do you need help understandi ng your or your child's healthcare needs (diagnosis, medications, plan, etc.)? No 06/22/2023 Financing Health Concerns Answer Date R ecorded In the last 12 months, was t here a time when your child needed to see a doctor or get medications or supplies but could not because of cost? No 06/22/2023 Missing School or Work Answer Date Dale rded Did you or your child miss s chool or work because of a health problem that could have been avoided? No 06/22/2023 Child Education Answer Date Recorded Do you have concerns about y our/your child's learning or behavior in school, preschool, or daycare? No 06/22/2023 Comments No Sex and Gender Information Value Date Recorded Sex Assigned at Female 06/22/2023 2:33 PM EDT Legal Sex Female 5:05 PM EDT Gender Identity Female 02/04/2020 2:23 PM EST Sexual Orientation Lesbian or Ty 06/22/2023 2: 33 PM EDT Last Filed Vital Signs Vital Sign Reading Time Taken Comments Blood Pressure 118/77 06/22/2023 1:43 PM EDT Pulse 68 06/22/2023 1:43 PM EDT Temperature 36.3 C (97.4 F) 11/10/2022 9:22 AM EDT Respiratory Rate - - Oxygen Saturation - - Inhaled Oxygen Concentration - - Weight 126 kg (277 lb) 06/22/2023 1:43 PM EDT Height 166.4 cm (5' 5.5 ) 06/22/2023 1:43 PM EDT Body Mass Index 45.39 06/22/2023 1:43 PM EDT Plan of Treatment Health Maintenance Due Date Last Done Comments Chlamydia and Gonorrhea Screening 02/15/2024 06/22/2023, 04/12/2022, 08/04/2020, Additional history exists Influenza Vaccines (#1) 2024 01/10/20, 11/10/2022, 11/16/2021, Additional history exists DTaP,Tdap,and Td Vaccines (7 - Td or Tdap) 02/04/2025 02/04/2015, 05/16/2007, 10/20/2004, Additional history exists Hepatitis B Vaccines Completed 02/05/2004, 2003, 2003 HIB Vaccines Completed 07/21/2004, 08/2003, 2003, Additional history exists Pneumococcal Vaccine Completed 07/21/2004, 2003, 2003, Additional history exists IPV Vaccines Completed 05/16/2007, 01/15, 2003, Additional history exists MMR Vaccines Completed 05/16/2007, 04/14/2004 Varicella Vaccines Completed 05/16/2007, 04/14/2004 Hepatitis A Vaccines Completed 12/12/2013, 09/04/19 11 HPV Vaccines Completed 04/12/2016, 02/04/2015 Meningococcal Vaccine Completed 07/05/2019, 015 Men B Vaccine Completed 04/08/2021, 08/04/2020 COVID-19 Vaccine Completed 01/10/2024, 09/2023, 11/16/2021, Additional history exists Procedures * Due to [place] [employer] law, this organization might not be sharing sensitive test results. Procedure Name Priority Date/Time Associated Diagnosis Comments CHLAMYDIA AND GONORRHEA, AMPLIFIED Routine 06/22/2023 2:46 PM EDT Screening examination for bacterial and spirochetal disease from Last 3 Months or Most Recently Relevant to Health Maintenance Results * Due to [place] [employer] law, this organization might not be sharing sensitive test results. * Chlamydia and Gonorrhea, Amplified (06/22/2023 2:46 PM EDT) C trach DORIS Negative Negative [facility] N gonorrhoeae DORIS Negative Negative [facility] Urine (Urine) 06/22/2023 2:4 6 PM EDT 06/22/2023 Comment:UR Narrative [facility] - 06/24/2023 2:08 PM EDT Performed at: 01 - [facility] [address] [id number] Police Patrol Officer: Nita Christina MD, Phone: [phone] us Sharron Garcia MD LAB MICROBIOLOGY - GENERAL ORDERABLES Final Result Performing Organization Address City/State/[facility] Co de Phone Number [facility] [address] [place] [address] from Last 3 Months or Most Recently Relevant to Health Maintenance Insurance [facility] NON PCC [facility] NON [facility]CC [facility]
--- OUTSIDE RECORDS SUMMARY | 2024-11-06 23:56 | XMS_ITS | Encounter Summary ---
Author Organization [facility] Address [address] [place] [address] Phone Care Team Providers Care Medical Record Assistant Name Role Phone Sharron Garcia MD Primary Care Provider [phone]- [phone] Reason for Visit * Reason Comments Med Refill Encounter Details Date Type Department Care Team (Late st Contact Info) Description 10/31/2020 Refill [facility] [address] [place] [address] Fabi Liu MD [address] [facility] [place] [address] Vitamin D deficiency Social History Tobacco Use [...] there wasn't enough money for food? No 08/04/2020 Stable Housing Answer Date Recorded Are you worried that in the next 2 months you may not have stable housing? No 08/04/2020 Transportation Concerns Answer Date Rec orded In the last 12 months, have you or your family ever had to go without healthcare because you didn't have a way to get there? No 08/04/2020 Hazards in Home Answer Date Recorded Think about the place you li ve. Do you have problems with any of the following? Pests (mice or roaches), mold, no/not working smoke detectors, water leaks, no window guards. No 2020 Financing Utilities Answer Date Recorde d In the last 12 months, has t he electric, gas, oil, or water company threatened to shut off your services in your home? No 08/04/2020 Safety at Home Answer Date Recorded Are you or your family worried about feeling saf e in your home? No 08/04/2020 Outside Support Answer Date Recorded Do you feel that you need mo re support from other people or programs to help you care for yourself or your family? No 08/04/2020 Understanding Health Concerns Answer Da te Recorded Do you need help understandi ng your or your child's healthcare needs (diagnosis, medications, plan, etc.)? No 08/04/2020 Financing Health Concerns Answer Date R ecorded In the last 12 months, was t here a time when your child needed to see a doctor or get medications or supplies but could not because of cost? No 08/04/2020 Missing School or Work Answer Date Dale rded Did you or your child miss s chool or work because of a health problem that could have been avoided? No 08/04/2020 Comments No Sex and Gender Information Value Date Recorded Sex Assigned at Female 06/22/2023 2:33 PM EDT Legal Sex Female 5:05 PM EDT Gender Identity Female 02/04/2020 2:23 PM EST Sexual Orientation Lesbian or Ty 06/22/2023 2: 33 PM EDT documented as of this encounter Miscellaneous Notes * Telephone Encounter - Ysabel Gutierres LPN - 10/31/2020 10:52 AM EDT Faxed refill request/current with visit documented in this encounter Plan of Treatment Not on file documented as of this encounter Visit Diagnoses Diagnosis Vitamin D deficiency documented in this encounter Care Teams Medical Record Assistant Relationship Specialty Start Date End Date Sharron Garcia MD [address] [place] [address] [place] [address] PCP - General Pediatrics 05/24/18 05/15/24 documented as of this encounter
--- OUTSIDE RECORDS SUMMARY | 2024-11-06 23:56 | XMS_ITS | Encounter Summary ---
Author Organization [facility] Address [address] [place] [id number] Phone Care Team Providers Care Internet Specialist Name Role Phone Sharron Garcia MD Primary Care Provider [phone] Encounter Details Date Type Department Care Team (Late st Contact Info) Description 10/14/2009 Documentation [facility] [place] [address] [place] [address] Family Medicine, Physician [address] [place], [place] [phone] Social History Tobacco Use Types Packs/Day Years [...] on filedocumented in this encounter Care Teams Internet Specialist Relationship Specialty Start Date End Date Sharron Garcia MD [address] [place] [address] [place] [address] PCP - General Pediatrics 05/24/18 05/15/24 documented as of this encounter
--- OUTSIDE RECORDS SUMMARY | 2024-11-06 23:56 | XMS_ITS | Encounter Summary ---
Author Organization [facility] Address [address] [place] [id number] Phone Care Team Providers Care Freight Team Associate Name Role Phone Sharron Garcia MD Primary Care Provider Encounter Details Date Type Department Care Team (Late st Contact Info) Description 06/18/2014 [place] [facility] [place] [address] [place] [address] Family Medicine, Physician [address] [place], [place] [phone] Social History Tobacco Use Types Packs/Day Years [...] on filedocumented in this encounter Care Teams Freight Team Associate Relationship Specialty Start Date End Date Sharron Garcia MD [address] [place] [address] [place] [address] PCP - General Pediatrics 05/24/18 05/15/24 documented as of this encounter
--- OUTSIDE RECORDS SUMMARY | 2024-11-06 23:56 | XMS_ITS | Encounter Summary ---
Author Organization [facility] Address [address] [place] [id number] Phone Care Team Providers Care Tractor Operator Battery Name Role Phone Sharron Garcia MD Primary Care Provider Encounter Details Date Type Department Care Team (Late st Contact Info) Description 06/13/[address] [facility] [place] [address] [place] [address] Family Medicine, Physician [address] [place], [place] [phone] Social History Tobacco Use Types Packs/Day Years [...] on filedocumented in this encounter Care Teams Tractor Operator Battery Relationship Specialty Start Date End Date Sharron Garcia MD [address] [place] [address] [place] [address] PCP - General Pediatrics 05/24/18 05/15/24 documented as of this encounter
--- OUTSIDE RECORDS SUMMARY | 2024-11-06 23:56 | XMS_ITS | Encounter Summary ---
Author Organization [facility] Address [address] [place] [phone] Phone Care Team Providers Care Lock And Dam Equipment Repairer Name Role Phone Sharron Garcia MD Primary Care Provider Encounter Details Date Type Department Care Team (Late st Contact Info) Description 08/20/2016 [place] [facility] [place] [address] [place] [address] Family Medicine, Physician [address] [place], [place] [phone] Social History Tobacco Use Types Packs/Day Years [...] on filedocumented in this encounter Care Teams Lock And Dam Equipment Repairer Relationship Specialty Start Date End Date Sharron Garcia MD [address] [place] [address] [place] [address] PCP - General Pediatrics 05/24/18 05/15/24 documented as of this encounter
[2024-11-07 01:57] VITALS: BP 147/84; PULSE 66; RESP 18; TEMP 37.1; O2SAT 97
== END 2024-11-07 01:58 | disposition home or self-care (01) ==
PROVIDERS: Emergency Provider Emergency Medicine Emergency Medical Services
DX: A02.8 Other specified salmonella infections (principal); A09 Infectious gastroenteritis and colitis, unspecified; R10.13 Epigastric pain; E86.9 Volume depletion, unspecified; R11.2 Nausea with vomiting, unspecified; R10.2 Pelvic and perineal pain; R51.9 Headache, unspecified; R42 Dizziness and giddiness; Z11.52 Encounter for screening for COVID-19; Z79.899 Other long term (current) drug therapy
CPT/HCPCS: 80053; 81001; 83690; 84702; 85025; 87086; 87502; 87635; 96361; 96374; 96375; 99284; J1200; J1885; J2765

== ENCOUNTER 2024-11-28 20:04 | Emergency (ER) | payer OTHER, SELFPAY ==
[2024-11-28 20:15] VITALS: BP 150/88; PULSE 90; RESP 16; TEMP 36.2; O2SAT 96; BMI 47.9
[2024-11-28 20:38] LABS: Hematocrit 41.1 % (37.0-47.0); Hemoglobin 13.1 g/dl (12.0-16.0); Imm Gran Abs Auto 0.04 X10*3/uL (0.00-0.03); Imm Gran Pct Auto 0.3 % (0.0-0.4); Lymphocytes Absolute Auto 2.7 X10*3/uL (1.2-4.9); MANUAL DIFF FLAG NO; Mean Corpuscular HGB Conc 31.9 g/dl (31.0-35.0); Mean Corpuscular Hemoglobin 25.5 pg (27.0-33.0); Mean Corpuscular Volume 80.0 fL (80.0-98.0); NRBC Abs Auto 0.000 X10*3/uL (0.0-0.012); NRBC Pct Auto 0.0 /100WBC (0.0-0.2); Platelet Count 357 X10*3/uL (160-400); Red Blood Count 5.14 X10*6/uL (4.20-5.50); White Blood Count 13.0 X10*3/uL (4.8-10.8)
[2024-11-28 20:53] LABS: Alanine Aminotransferase 81 U/L (0-31); Albumin Level 4.5 g/dL (3.5-5.0); Anion Gap 14 (12-20); Aspartate Amino Transferase 47 U/L (5-31); Blood Urea Nitrogen 14 mg/dL (9-16); Calcium 9.7 mg/dL (8.4-10.2); Carbon Dioxide 23 mmol/L (22-29); Chloride 110 mmol/L (96-108); Creatinine Clr Calc Pharmacy 199.2; Estimated Glomerular Filt Rate > 60; Potassium 4.2 mmol/L (3.3-5.1); Sodium 143 mmol/L (135-145); Total Protein 7.6 g/dL (6.5-8.0)
[2024-11-28 21:04] LABS: Alkaline Phosphatase 90 U/L (39-117)
--- NOTE | 2024-11-29 | ED_ITS ---
History of Present Illness General Chief Complaint: Epistaxis Stated Complaint: nose bleed Time Seen by Provider: 11/28/24 23:58 Source: patient Mode of arrival: ambulatory Limitations: no limitations History of Present Illness ED Provider: Frank ROBISON HPI Narrative: The patient is a 19-year-old female presenting to the ED reporting at around 16:15 she was taking a shower when she developed a nosebleed from the right nostril. Patient reports associated clots and mucous, patient reports she noted some lightheadedness with onset of bleeding and patient presented to the ED for evaluation. The patient reports bleeding subsided spontaneously 1 hour prior to this provider's interview and exam. Patient denies recent trauma, denies hematochezia, melena, hematuria, gingival bleeding, or other sources of bleeding. The patient reports she attempted to hold pressure however when demonstrating holding pressure it is notable that the patient clamped the bony structure of her nose with her index and thumb. Patient reports a remote history of nosebleeds as a child, denies any definitive diagnosis of blood/bleeding disorders. Related Data Home Medications ?Medication ?Instructions ?Recorded ?Confirmed ibuprofen 600 mg tablet 600 mg PO Q8H PRN Pain 08/0806/29/23 multivitamin-ferrous 1 tab PO BEDTIME 08/08/20 fumarate-folic acid 18 mg-400 mcg tablet Previous Rx's ?Medication ?Instructions ?Recorded ferrous sulfate 325 mg (65 mg 325 mg PO DAILY #30 tabs 03/16/21 iron) tablet hirpwuzjbr-omvpjybuvmyzp-okagsfia 1 tab PO Q6H PRN hae adace #20 tabs 11/30/22 50 mg-325 mg-40 mg tablet albuterol sulfate 90 mcg/actuation 2 puff inhalation Q 4-6H PRN 12/07/22 aerosol inhaler (ProAir HFA) shortness of breath or wh eezing #8.5 grams cholecalciferol (vitamin D3) 125 125 mcg PO DAILY 90 d ays #90 caps 01/10/23 mcg (5,000 unit) capsule thiamine HCl (vitamin B1) 100 mg 100 mg PO DAILY #90 t abs 01/14/23 tablet progesterone micronized 200 mg 200 mg PO BEDTIME 10 da ys #30 caps 07/14/23 capsule (Prometrium) amoxicillin 500 mg capsule 500 mg PO BID 10 days #20 c aps 07/10/24 fluconazole 150 mg tablet 150 mg PO Q3D 2 doses #2 tab s 07/10/24 diazepam 5 mg tablet (Valium) 5 mg PO TID PRN muscle s pasm #10 07/28/24 tabs lidocaine 5 % topical patch 1 patch topical DAILY #30 ea 07/28/24 ciprofloxacin HCl 500 mg tablet 500 mg PO Q12H 4 days #8 tabs 11/07/24 (Cipro) diphenhydramine HCl 25 mg capsule 50 mg (2 x 25 mg) PO Q6H PRN 11/07/24 headache, nausea, vomiting #20 caps loperamide 2 mg tablet (Imodium 2 mg PO Q4H PRN loose stool #20 11/07/24 A-D) tabs metoclopramide HCl 10 mg tablet 10 mg PO Q6H PRN nause a and 11/07/24 (Reglan) vomiting #14 tabs Allergies Allergy/AdvReac Type Severity Reaction Status Date / Time No Known Allergies Allergy Verified 11/28/24 20:23 Review of Systems 2 Review of Systems: Yes all other systems are reviewed and are negative PMFSH Past Medical History Medical History Migraine PCOS (polycystic ovarian syndrome) Morbid obesity Scoliosis Surgical History Hx of wisdom tooth extraction Hx of tonsillectomy Family History Family History Mother Hypertension Father Family history unknown Social History Social History Alcohol intake: never Patient Tobacco Use Status: Never used Tobacco Advance Directives: No Advance Directives Information Provided: Yes Do you have a plan to hurt others: No Plan Physical Exam 2 Vital Signs: Vital Signs: Last Vital Signs Temp 97.0 F 11/29/24 00:26 Pulse 82 11/29/24 00:26 Resp 16 11/29/24 00:26 BP 151/97 H 11/29/24 00:26 Pulse Ox 96 11/29/24 00:26 O2 Del Method Room Air 11/29/24 00:26 BMI result Body Mass Index 47.9 CONSTITUTIONAL: The patient appears non-toxic, well nourished and in no acute distress. Vital signs as documented. HEAD: Atraumatic, normocephalic. EYES: EOMs grossly intact, pupils equal, conjunctiva clear, no exudate. ENT: Nares patent, no discharge, no dried blood, no septal hematoma. Airway patent, no audible stridor, visible mucosa is pink and moist without noted lesions. No active bleeding or dried blood in the posterior pharynx. NECK: trachea is midline, no obvious masses or gross abnormalities. CHEST: Symmetric movement, normal appearance. LUNGS: Non-labored work of breathing. CARDIAC: No evidence of hypoperfusion. ABDOMEN: Nondistended, no obvious injury. : Deferred. EXTREMITIES: Moves all extremities spontaneously without reported pain. No obvious injury or deformity noted. NEURO: Alert and oriented x3, CN II-XII appear grossly intact. Cerebellar Functioning grossly intact. Speech clear and appropriate. SKIN: Warm, dry, color appropriate. No rashes or lesions noted. Medical Decision Making Medical Decision Making MDM Narrative: 12:15 AM 11/29/2024 (Abigail ROBISON): The patient is a 19-year-old female presenting to the ED reporting at around 16:15 she was taking a shower when she developed a nosebleed from the right nostril. Patient reports associated clots and mucous, patient reports she noted some lightheadedness with onset of bleeding and patient presented to the ED for evaluation. The patient reports bleeding subsided spontaneously 1 hour prior to this provider's interview and exam. Patient denies recent trauma, denies hematochezia, melena, hematuria, gingival bleeding, or other sources of bleeding. The patient reports she attempted to hold pressure however when demonstrating holding pressure it is notable that the patient clamped the bony structure of her nose with her index and thumb. Patient reports a remote history of nosebleeds as a child, denies any definitive diagnosis of blood/bleeding disorders. On exam the patient has no active bleeding of the bilateral nostrils or posterior pharynx. No dried blood appreciated. Patient has a nose ring of the nasal septum, no bleeding around this area. There is no septal hematoma or evidence of acute trauma. Patient's laboratory evaluation is reassuring, no anemia or thrombocytopenia. No other acute remarkable findings. Patient's bleeding may be environmental in nature, however given the spontaneous resolution of bleeding, and reassuring laboratory workup and exam, there is no indication for immediate intervention. Patient will be discharged with epistaxis management instructions, and instructions to follow up with ENT or return to the ED with recurrent bleeding. Admission/Observation Consideration of admission/observation: Escalation of care including admission/observation considered Lab Data MDM Lab Attestation statement: I reviewed the patient's lab results. 11/28/24 20:34 11/28/24 20:34 Labs: Lab Results 11/28/24 Range/Units 20:34 WBC 13.0 H (4.8-10.8) X10*3/uL RBC 5.14 (4.20-5.50) X10*6/uL Hgb 13.1 (12.0-16.0) g/dl Hct 41.1 (37.0-47.0) % MCV 80.0 (80.0-98.0) fL MCH 25.5 L (27.0-33.0) pg MCHC 31.9 (31.0-35.0) g/dl RDW 14.6 (11.0-16.0) % Plt Count 357 (160-400) X10*3/uL MPV 9.1 L (9.4-12.3) fL Immature Gran % (Auto) 0.3 (0.0-0.4) % Neut % (Auto) 68.9 (45-73) % Lymph % (Auto) 20.8 (20-40) % [place] % (Auto) 8.2 (2-11) % Eos % (Auto) 1.5 (0-4) % Baso % (Auto) 0.3 (0-2) % Lymph # (Auto) 2.7 (1.2-4.9) X10*3/uL [place] # (Auto) 1.1 (0.1-1.2) X10*3/uL Eos # (Auto) 0.2 (0.0-0.4) X10*3/uL Baso # (Auto) 0.0 (0.0-0.2) X10*3/uL Abs Immat Gran (auto) 0.04 H (0.00-0.03) X10*3/uL Absolute Neuts (auto) 9.0 H (2.0-8.3) x10*3/uL Absolute Nucleated RBC 0.000 (0.0-0.012) X10*3/uL Nucleated RBC % (auto) 0.0 (0.0-0.2) /100WBC Sodium 143 (135-145) mmol/L Potassium 4.2 (3.3-5.1) mmol/L Chloride 110 H (96-108) mmol/L Carbon Dioxide 23 (22-29) mmol/L Anion Gap 14 (12-20) BUN 14 (9-16) mg/dL Creatinine 0.63 (0.5-1.4) mg/dL Estim Creat Clear Calc 199.2 Estimated GFR > 60 Random Glucose 88 (60-115) mg/dL Calcium 9.7 (8.4-10.2) mg/dL Total Bilirubin 1.0 (0.0-1.0) mg/dL AST 47 H (5-31) U/L ALT 81 H (0-31) U/L Alkaline Phosphatase 90 (39-117) U/L Total Protein 7.6 (6.5-8.0) g/dL Albumin 4.5 (3.5-5.0) g/dL Discharge Plan Discharge Clinical Impression: Epistaxis Patient Disposition: Home, Self-Care Instructions: Nosebleed (ED) Additional Instructions: Thank you for choosing [facility]'s Emergency Department for your care today. Thankfully your laboratory evaluation today shows no evidence of anemia as a result of your nose bleed today. Your laboratory evaluation shows a normal platelet count and your vital signs are reassuring. Your exam demonstrates resolution of your bleeding. At this time there is no indication for admission to the hospital or continued ED observation, and it is safe to discharge you home. Given your history of nosebleeds in years past, lack of other sources of irregular bleeding, reassuring laboratory workup, and the recent change in seasons, it is more likely this nosebleed was brought on by environmental causes. Please continue to monitor your symptoms and if bleeding reoccurs please apply direct pressure to the cartilaginous portion of your nose for a continuous 30 minutes (without removing pressure to check for additional bleeding). If symptoms do not resolve after 30 minutes of continuous pressure, or you develop lightheadedness, dizziness, or chest pain, please return to the emergency department. If symptoms do reoccur, but resolve with direct pressure as outlined above, please follow up with our ENT specialist by calling the number provided. Please follow up with your primary care physician for re-evaluation, additional management of your symptoms, and continued preventative care. If you do not have a primary care physician, please call the [facility] at [phone] to establish a new primary care physician. While waiting to establish your new primary care physician, you can call our [facility] at [phone] for non-emergency needs. Please return to the emergency department if you develop a severe or sudden change in your symptoms, a fever over 100.4 that does not improve with Tylenol or Ibuprofen, recurrent vomiting, or any other new or worsening symptoms or concerns. Prescriptions: No Action ferrous sulfate 325 mg (65 mg iron) tablet 325 mg PO DAILY Qty: 30 5RF cholecalciferol (vitamin D3) 125 mcg (5,000 unit) capsule 125 mcg PO DAILY 90 Days Qty: 90 1RF thiamine HCl (vitamin B1) 100 mg tablet 100 mg PO DAILY Qty: 90 0RF tgxggbqbck-kvsiretfhafcz-iurh 50-325-40 mg tablet 1 tab PO Q6H PRN (Reason: haeadace) Qty: 20 0RF albuterol sulfate [ProAir HFA] 90 mcg/actuation HFA aerosol inhaler 2 puff inhalation Q4-6H PRN (Reason: shortness of breath or wheezing) Qty: 8.5 0RF amoxicillin 500 mg capsule 500 mg PO BID 10 Days Qty: 20 0RF fluconazole 150 mg tablet 150 mg PO Q3D Qty: 2 0RF Rx Instructions: may repeat second dose 72 hrs after first dose if symptoms persist lidocaine 5 % adhesive patch,medicated 1 patch topical DAILY Qty: 30 0RF Rx Instructions: leave on most painful area for up to 12 hrs diazepam [Valium] 5 mg tablet 5 mg PO TID PRN (Reason: muscle spasm) Qty: 10 0RF Rx Instructions: partial fill is okay loperamide [Imodium A-D] 2 mg tablet 2 mg PO Q4H PRN (Reason: loose stool) Qty: 20 0RF ciprofloxacin HCl [Cipro] 500 mg tablet 500 mg PO Q12H 4 Days Qty: 8 0RF diphenhydramine HCl 25 mg capsule 50 mg PO Q6H PRN (Reason: headache, nausea, vomiting) Qty: 20 0RF metoclopramide HCl [Reglan] 10 mg tablet 10 mg PO Q6H PRN (Reason: nausea and vomiting) Qty: 14 0RF Spectravite Advanced Formula 18-400 mg-mcg tablet 1 tab PO BEDTIME ibuprofen 600 mg tablet 600 mg PO Q8H PRN (Reason: Pain) progesterone micronized [Prometrium] 200 mg capsule 200 mg PO BEDTIME 10 Days Qty: 30 0RF Rx Instructions: Take the pill 1 tablet a day cyclically every month from day 15-24 day 1 being the 1st day of next menstrual cycle [place] [facility] [place]] Clinical Impression: Epistaxis Interventions: ED Discharge Assessment Last Done: 11/29/24 00:26 Discharge Date/Time: 11/29/24 00:27 Print Language: Serbian
[2024-11-29 00:26] VITALS: BP 151/97; PULSE 82; RESP 16; TEMP 36.1; O2SAT 96
== END 2024-11-29 00:27 | disposition home or self-care (01) ==
PROVIDERS: Emergency Medicine; Emergency Provider Student in an Organized Health Care Education/Training Program
DX: R04.0 Epistaxis (principal); R42 Dizziness and giddiness; Z79.899 Other long term (current) drug therapy
CPT/HCPCS: 36415; 80053; 85025; 99282; 99283

== ENCOUNTER 2025-01-19 16:31 | Emergency (ER) | payer OTHER, SELFPAY ==
--- NOTE | ~2025-01-19 | XR_ITS ---
CLINICAL HISTORY: 4th digit pain s p slamming finger in register 3 view left 4th digit Comparison: None Findings: No fractures or dislocations. No significant loss of joint space or osteophytes. No erosions. No radiopaque foreign body. IMPRESSION: 1. No acute findings This document has been electronically signed by: Horacio Bernstein MD on 01/19/2025 17:54:04
[2025-01-19 16:40] VITALS: BP 146/79; PULSE 84; RESP 16; TEMP 36.1; O2SAT 98; BMI 47.7
--- NOTE | 2025-01-19 16:40 | ED_ITS ---
HPI - Extremity Injury (Upper) General Chief Complaint: Extremity Injury, Upper Stated Complaint: Injury Time Seen by Provider: 01/19/25 18:19 Source: patient Mode of arrival: ambulatory Limitations: no limitations History of Present Illness ED Provider: DAVINA BANGURA PA-C HPI narrative: 19 year old female presents to the ED today for evaluation of left 4th digit pain x2 weeks. Pain began after slamming her hand in [employer] register at work. Denies numbness/tingling/weakness. Trialing OTC tylenol without much improvement. Related Data Home Medications ?Medication ?Instructions ?Recorded ?Confirmed ibuprofen 600 mg tablet 600 mg PO Q8H PRN Pain 08/0806/29/23 multivitamin-ferrous 1 tab PO BEDTIME 08/08/20 fumarate-folic acid 18 mg-400 mcg tablet Previous Rx's ?Medication ?Instructions ?Recorded ferrous sulfate 325 mg (65 mg 325 mg PO DAILY #30 tabs 03/16/21 iron) tablet adpugoklgd-nbkeuxehqebzh-wvemgono 1 tab PO Q6H PRN hae adace #20 tabs 11/30/22 50 mg-325 mg-40 mg tablet albuterol sulfate 90 mcg/actuation 2 puff inhalation Q 4-6H PRN 12/07/22 aerosol inhaler (ProAir HFA) shortness of breath or wh eezing #8.5 grams cholecalciferol (vitamin D3) 125 125 mcg PO DAILY 90 d ays #90 caps 01/10/23 mcg (5,000 unit) capsule thiamine HCl (vitamin B1) 100 mg 100 mg PO DAILY #90 t abs 01/14/23 tablet progesterone micronized 200 mg 200 mg PO BEDTIME 10 da ys #30 caps 07/14/23 capsule (Prometrium) amoxicillin 500 mg capsule 500 mg PO BID 10 days #20 c aps 07/10/24 fluconazole 150 mg tablet 150 mg PO Q3D 2 doses #2 tab s 07/10/24 diazepam 5 mg tablet (Valium) 5 mg PO TID PRN muscle s pasm #10 07/28/24 tabs lidocaine 5 % topical patch 1 patch topical DAILY #30 ea 07/28/24 ciprofloxacin HCl 500 mg tablet 500 mg PO Q12H 4 days #8 tabs 11/07/24 (Cipro) diphenhydramine HCl 25 mg capsule 50 mg (2 x 25 mg) PO Q6H PRN 11/07/24 headache, nausea, vomiting #20 caps loperamide 2 mg tablet (Imodium 2 mg PO Q4H PRN loose stool #20 11/07/24 A-D) tabs metoclopramide HCl 10 mg tablet 10 mg PO Q6H PRN nause a and 11/07/24 (Reglan) vomiting #14 tabs Allergies Allergy/AdvReac Type Severity Reaction Status Date / Time kiwi Allergy Unknown Verified 01/19/25 16:42 pomegranate Allergy Unknown Verified 01/19/25 16:42 shrimp Allergy Unknown Verified 01/19/25 16:42 Review of Systems Review of Systems: Yes all other systems are reviewed and are negative [facility] Past Medical History Attestation statement: The following information was validated with the patient. Source: old records reviewed and nursing notes reviewed Medical History Migraine PCOS (polycystic ovarian syndrome) Morbid obesity Scoliosis Surgical History Hx of wisdom tooth extraction Hx of tonsillectomy Family History Family History Mother Hypertension Father Family history unknown Social History Social History Alcohol intake: never Patient Tobacco Use Status: Never used Tobacco Do you have a plan to hurt others: No Plan Physical Exam Vital Signs: Vital Signs: Last Vital Signs Temp 97 F 01/19/25 16:40 Pulse 84 01/19/25 16:40 Resp 16 01/19/25 16:40 BP 146/79 H 01/19/25 16:40 Pulse Ox 98 01/19/25 16:40 O2 Del Method Room Air 01/19/25 16:40 BMI result Body Mass Index 47.7 hypertensive, vitals are otherwise wnl General: Well appearing, in no acute distress. Skin: Warm, dry, intact. No rashes or lesions. Head: Normocephalic, atraumatic. EENT: Hearing is intact b/l. Conjunctiva clear. PERRLA. EOM intact. Moist mucous membranes.? Cardiac: Chest wall symmetric. RRR Lungs: Normal respiratory effort without accessory muscle use. CTA bilaterally Back: No midline spinous or paraspinal tenderness. No step off deformity. Ext: +L hand/wrist without overlying skin changes/deformities. Full ROM intact to left wrist and all digits. Qjyoxq-pl-prlcd opposition intact. Finger strength intact. Meat And Poultry Inspector strength intact. 2+ radial pulse intact. Neuro: AOx3. Normal speech. Ambulating with steady gait. Course Course Course Narrative: This is a Rapid Medical Examination (RME) performed by Abigail Bangura PA-C in triage. Full HPI, ROS, assessment and treatment plan per primary provider in the Main ED. Hx: 19 yo F here for eval of left 4th digit pain s/p slamming the hand in a register at work x weeks ago. Plan: xrs Reevaluation(s) Reevaluation #1: xrs unremarkable. Motrin given in triage. Patient has remained stable throughout ED visit today. Discussed worrisome signs and symptoms and when to return to the ED. All questions answered at this time. Patient is agreeable with disposition and stable for discharge. Medical Decision Making Medical Decision Making [facility] Narrative: 19 year old female presents to the ED today for evaluation of left 4th digit pain x2 weeks. Patient is hypertensive, vitals are otherwise WNL. She is well- appearing and in no acute distress. on exam, L hand/wrist without overlying skin changes/deformities. Full ROM intact to left wrist and all digits. Jibkhi-gs-iwjte opposition intact. Finger strength intact. Meat And Poultry Inspector strength intact. 2+ radial pulse intact. Differential diagnosis includes contusion, fracture. Less likely ligament/tendon injury, nerve injury. Plan for x-rays, Motrin, re-evaluation. Differential Diagnosis Differential Diagnoses: The differential diagnosis associated with the presentation includes As above Admission/Observation Not indicated Independent Interpretation I performed an independent interpretation of an: Plain X-Ray Interpretation: X-ray left 4th digit without fracture Radiology Impression Discussion of test interpretation with radiology: I have reviewed the radiologist's reading. Radiologist Impression: Procedure(s): XR finger LT min 2V Accession Number(s): [id number] cc: Physician,None ; Davina Bangura Reason for Exam: 4th digit pain s/p slamming finger in register CLINICAL HISTORY: 4th digit pain s p slamming finger in register 3 view left 4th digit Comparison: None Findings: No fractures or dislocations. No significant loss of joint space or osteophytes. No erosions. No radiopaque foreign body. IMPRESSION: 1. No acute findings This document has been electronically signed by: Horacio Bernstein MD on 01/19/2025 17:54:04 External Record Review External record reviewed: Inpatient record Prescription Management I considered prescription management with: Pain Medication Social Determinants Patient?s care significantly limited by Social Determinants of Health including: Other Social Determinant of Health Critical Care Time Critical Care Time Critical Care Time: No Discharge Plan Discharge Clinical Impression: Contusion of finger Patient Disposition: Home, Self-Care Instructions: Contusion in Adults (ED) Additional Instructions: Your xrays do not reveal any fractures. Take tylenol and motrin at home. Follow up with PCP. I have also provided you with a referral to a hand specialist, you may follow up with them as needed. Return with any new/worsening symptoms. In the case of an emergency call 911. Prescriptions: No Action ferrous sulfate 325 mg (65 mg iron) tablet 325 mg PO DAILY Qty: 30 5RF cholecalciferol (vitamin D3) 125 mcg (5,000 unit) capsule 125 mcg PO DAILY 90 Days Qty: 90 1RF thiamine HCl (vitamin B1) 100 mg tablet 100 mg PO DAILY Qty: 90 0RF djwwtkamqk-ghfbhmdrtfubd-xntj 50-325-40 mg tablet 1 tab PO Q6H PRN (Reason: haeadace) Qty: 20 0RF albuterol sulfate [ProAir HFA] 90 mcg/actuation HFA aerosol inhaler 2 puff inhalation Q4-6H PRN (Reason: shortness of breath or wheezing) Qty: 8.5 0RF amoxicillin 500 mg capsule 500 mg PO BID 10 Days Qty: 20 0RF fluconazole 150 mg tablet 150 mg PO Q3D Qty: 2 0RF Rx Instructions: may repeat second dose 72 hrs after first dose if symptoms persist lidocaine 5 % adhesive patch,medicated 1 patch topical DAILY Qty: 30 0RF Rx Instructions: leave on most painful area for up to 12 hrs diazepam [Valium] 5 mg tablet 5 mg PO TID PRN (Reason: muscle spasm) Qty: 10 0RF Rx Instructions: partial fill is okay loperamide [Imodium A-D] 2 mg tablet 2 mg PO Q4H PRN (Reason: loose stool) Qty: 20 0RF ciprofloxacin HCl [Cipro] 500 mg tablet 500 mg PO Q12H 4 Days Qty: 8 0RF diphenhydramine HCl 25 mg capsule 50 mg PO Q6H PRN (Reason: headache, nausea, vomiting) Qty: 20 0RF metoclopramide HCl [Reglan] 10 mg tablet 10 mg PO Q6H PRN (Reason: nausea and vomiting) Qty: 14 0RF Spectravite Advanced Formula 18-400 mg-mcg tablet 1 tab PO BEDTIME ibuprofen 600 mg tablet 600 mg PO Q8H PRN (Reason: Pain) progesterone micronized [Prometrium] 200 mg capsule 200 mg PO BEDTIME 10 Days Qty: 30 0RF Rx Instructions: Take the pill 1 tablet a day cyclically every month from day 15-24 day 1 being the 1st day of next menstrual cycle Referrals: Physician,None [Primary Care Provider, Medical] Print Language: Serbian
--- OUTSIDE RECORDS SUMMARY | 2025-01-19 18:55 | XMS_ITS | Encounter Summary ---
Author Organization [facility] Address [address] [place] [address] Phone Care Team Providers Care Store Sales Leader Name Role Phone Sharron Garcia MD Primary Care Provider [phone] Encounter Details Date Type Department Care Team (Late st Contact Info) Description 10/14/2009 Documentation [facility] Family Medicine [address] [place] [address] Family Medicine, Physician [address] [place], [place] [phone] Social History Tobacco Use Types Packs/Day Years [...] on filedocumented in this encounter Care Teams Store Sales Leader Relationship Specialty Start Date End Date Sharron Garcia MD [address] [place] [address] [place] [address] PCP - General Pediatrics 05/24/18 05/15/24 documented as of this encounter
--- OUTSIDE RECORDS SUMMARY | 2025-01-19 18:55 | XMS_ITS | Encounter Summary ---
Author Organization [facility] Address [address] [place] [address] Phone Care Team Providers Care Drain Tile Press Operator Name Role Phone Sharron Garcia MD Primary Care Provider [phone] Reason for Visit * Reason Comments Med Refill Encounter Details Date Type Department Care Team (Late st Contact Info) Description 10/31/2020 Refill [facility] [address] [place] [address] Fabi Liu MD [address] [facility] [place] [address] Vitamin D deficiency Social History Tobacco Use [...] deficiency documented in this encounter Care Teams Drain Tile Press Operator Relationship Specialty Start Date End Date Sharron Garcia MD [address] [place] [address] [place] [address] PCP - General Pediatrics 05/24/18 05/15/24 documented as of this encounter
--- OUTSIDE RECORDS SUMMARY | 2025-01-19 18:55 | XMS_ITS | Encounter Summary ---
Author Organization [facility] Address [address] [place] [address] Phone Care Team Providers Care Manager Floral Name Role Phone Sharron Garcia MD Primary Care Provider [phone] Encounter Details Date Type Department Care Team (Late st Contact Info) Description 07/09/2016 Documentation [facility] [place] [place] Family Medicine [address] [place] [address] Family Medicine, Physician [address] [place], [place] [phone] Social History Tobacco Use Types Packs/Day Years [...] on filedocumented in this encounter Care Teams Manager Floral Relationship Specialty Start Date End Date Sharron Garcia MD [address] [place] [address] [place] [address] PCP - General Pediatrics 05/24/18 05/15/24 documented as of this encounter
--- OUTSIDE RECORDS SUMMARY | 2025-01-19 18:55 | XMS_ITS | Encounter Summary ---
Author Organization [facility] Address [address] [place] [address] Phone Care Team Providers Care Grinder Mill Operator Name Role Phone Sharron Garcia MD Primary Care Provider Encounter Details Date Type Department Care Team (Late st Contact Info) Description 06/18/2014 Documentation [facility] [place] Family Medicine [address] [place] [address] Family Medicine, Physician [address] [place], [place] [phone] Social History Tobacco Use Types Packs/Day Years [...] on filedocumented in this encounter Care Teams Grinder Mill Operator Relationship Specialty Start Date End Date Sharron Garcia MD [address] [place] [address] [place] [address] PCP - General Pediatrics 05/24/18 05/15/24 documented as of this encounter
--- OUTSIDE RECORDS SUMMARY | 2025-01-19 18:55 | XMS_ITS | Clinical Summary ---
Author Organization [facility] Address [address] [place] [address] Phone Care Team Providers Care Property Management Accountant Name Role Phone Unavailable Primary Care Provider [...] disorder) 06/08/2022 Anxiety 04/28/2022 Overview (06/02/2022): Seeing [facility] in office Current moderate episode of major depressive disorder without prior episode 04/12/2022 Overview (06/23/2022): 04/12/22; WHO completed. F/u scheduled with Vicki. Greco to be determined. Denny 04/26/22 - Follow-up with additional assessment and background. Pt has a history of trauma as well as depression and current stressors with negative parent-child relationship. She also struggles with anxiety. [facility] will bridge pt to ongoing outpatient services. 06/08/22 - Pt has an intake appt. At [facility] on 06/14/22 06/23/22 - Pt has connected with a therapist at [facility] and will follow-up with services through [facility]. No appointment scheduled with [facility]. Assessment & Plan (06/23/2022 2:33 PM EDT): [...] completed as necessary. PLAN: Follow up with [facility]; In office eval was scheduled, Jyoti is aware that appt can be scheduled in office or virtual. Pt has an intake with [facility] to bridge to outpatient services. Behavioral Recommendations: [...] completed as necessary. PLAN: Follow up with [facility]; In office eval was scheduled, Jyoti is aware that appt can be scheduled in office or virtual. Pt has an intake with [facility] to bridge to outpatient services. Behavioral Recommendations: [...] completed as necessary. PLAN: Follow up with [facility]; In office eval was scheduled, Jyoti is [...] as necessary. PLAN: 1. Follow up with [facility]; In office eval was scheduled, Jyoti is [...] as necessary. PLAN: 1. Follow up with [facility]; In office eval was scheduled, Jyoti is aware that appt can be scheduled in office or virtual. 2. Behavioral Recommendations: a. Contact [facility] crisis if there is any safety concern b. Attend to scheduled appt History of COVID-19 02/17/2021 PCOS (polycystic ovarian syndrome) 10/01/2020 Overview (10/01/2020): Seen by SURVEYING TEACHER Vitamin D deficiency 07/02/2020 Overview (07/02/2020): 06/2020 [...] check PT/PTT/[place] INB. Consider refer to SURVEYING TEACHER. Assessment & Plan (10/13/2018 4:18 PM EDT): [...] Additional history exists Influenza Vaccines (#1) 2024 01/10/20 24, 11/10/2022, 11/16/2021, Additional history exists COVID-19 Vaccine ( - 2024-2 6 season) 2024 01/10/2024, 06/22/2023, 11/16/2021, Additional history exists DTaP,Tdap,and Td Vaccines [...] 015 Men B Vaccine Completed 04/08/2021, 08/04/2020 Procedures * Due to [place] [employer] Federal law, this organization might not be sharing sensitive test results. Procedure Name Priority Date/Time Associated Diagnosis Comments CHLAMYDIA AND GONORRHEA, AMPLIFIED Routine 06/22/2023 2:46 PM EDT Screening examination for bacterial and spirochetal disease from Last 3 Months or Most Recently Relevant to Health Maintenance Results * Due to [place] [employer] Federal law, this organization might not be sharing sensitive test results. * Chlamydia and Gonorrhea, Amplified (06/22/2023 2:46 PM EDT) C trach DORIS Negative Negative [facility] N gonorrhoeae DORIS Negative Negative [facility] Urine (Urine) 06/22/2023 2:4 6 PM EDT 06/22/2023 Comment:UR Narrative [facility] - 06/24/2023 2:08 PM EDT Performed at: - [facility] [address] [id number] Fairground Operator: Nita Christina MD, Phone: [phone] us Sharron Garcia MD LAB MICROBIOLOGY - GENERAL ORDERABLES Final Result Performing Organization Address City/State/[facility] Co de Phone Number [facility] [address] [place] [address] from Last 3 Months or Most Recently Relevant to Health Maintenance [place] [address] [facility] NON PCC [facility] NON PCC [facility]
--- OUTSIDE RECORDS SUMMARY | 2025-01-19 18:55 | XMS_ITS | Encounter Summary ---
Author Organization [facility] Address [address] [place] [address] Phone Care Team Providers Care Dining Room Cashier Name Role Phone Sharron Garcia MD Primary Care Provider [phone] Encounter Details Date Type Department Care Team (Late st Contact Info) Description 09/30/2016 Conversion Encounter [facility] [address] [place] [address] Social History Tobacco Use Types Packs/Day Years [...] on filedocumented in this encounter Care Teams Dining Room Cashier Relationship Specialty Start Date End Date Sharron Garcia MD [address] [place] [address] PCP - General Pediatrics 05/24/18 05/15/24 documented as of this encounter
--- OUTSIDE RECORDS SUMMARY | 2025-01-19 18:55 | XMS_ITS | Encounter Summary ---
Author Organization [facility] Address [address] [place] [address] Phone Care Team Providers Care Applied Psychology Professor Name Role Phone Sharron Garcia MD Primary Care Provider Encounter Details Date Type Department Care Team (Late st Contact Info) Description 08/20/2016 Documentation [facility] [place] [address] [place] [address] Family Medicine, Physician [address] [place], [place] [phone] Social History Tobacco Use Types Packs/Day Years [...] on filedocumented in this encounter Care Teams Applied Psychology Professor Relationship Specialty Start Date End Date Sharron Garcia MD [address] [place] [address] [place] [address] PCP - General Pediatrics 05/24/18 05/15/24 documented as of this encounter
--- OUTSIDE RECORDS SUMMARY | 2025-01-19 18:55 | XMS_ITS | Encounter Summary ---
Author Organization [facility] Address [address] [place] [address] Phone Care Team Providers Care Online Banking Specialist Name Role Phone Sharron Garcia MD Primary Care Provider Encounter Details Date Type Department Care Team (Late st Contact Info) Description 05/21/2016 Documentation [facility] [place] Family Medicine [address] [place] [address] Family Medicine, Physician [address] [place], [place] [phone] Social History Tobacco Use Types Packs/Day Years [...] on filedocumented in this encounter Care Teams Online Banking Specialist Relationship Specialty Start Date End Date Sharron Garcia MD [address] [place] [address] [place] [address] PCP - General Pediatrics 05/24/18 05/15/24 documented as of this encounter
--- OUTSIDE RECORDS SUMMARY | 2025-01-19 18:55 | XMS_ITS | Encounter Summary ---
Author Organization [facility] Address [address] [place] [address] Phone Care Team Providers Care Rotary Lithographic Press Operator Name Role Phone Sharron Garcia MD Primary Care Provider Encounter Details Date Type Department Care Team (Late st Contact Info) Description 06/13/2014 Documentation [facility] [place] Family Medicine [address] [place] [address] Family Medicine, Physician [address] [place], [place] [phone] Social History Tobacco Use Types Packs/Day Years [...] on filedocumented in this encounter Care Teams Rotary Lithographic Press Operator Relationship Specialty Start Date End Date Sharron Garcia MD [address] [place] [address] [place] [address] PCP - General Pediatrics 05/24/18 05/15/24 documented as of this encounter
--- OUTSIDE RECORDS SUMMARY | 2025-01-19 18:55 | XMS_ITS | Encounter Summary ---
Author Organization [facility] Address [address] [place] [address] Phone Care Team Providers Care Roofing Applicator Name Role Phone Sharron Garcia MD Primary Care Provider [phone] Encounter Details Date Type Department Care Team (Late st Contact Info) Description 08/06/2016 Documentation [facility] [place] [address] [place] [address] Family Medicine, Physician [address] [place], [place] [phone] Social History Tobacco Use Types Packs/Day Years [...] on filedocumented in this encounter Care Teams Roofing Applicator Relationship Specialty Start Date End Date Sharron Garcia MD [address] [place] [address] [place] [address] PCP - General Pediatrics 05/24/18 05/15/24 documented as of this encounter
--- OUTSIDE RECORDS SUMMARY | 2025-01-19 18:55 | XMS_ITS | Encounter Summary ---
Author Organization [facility] Address [address] [place] [address] Phone Care Team Providers Care Train Starter Name Role Phone Sharron Garcia MD Primary Care Provider [phone] Encounter Details Date Type Department Care Team (Late st Contact Info) Description 03/16/2012 Documentation [facility] [place] Family Medicine [address] [place] [address] Family Medicine, Physician [address] [place], [place] [phone] Social History Tobacco Use Types Packs/Day Years [...] on filedocumented in this encounter Care Teams Train Starter Relationship Specialty Start Date End Date Sharron Garcia MD [address] [place] [address] [place] [address] PCP - General Pediatrics 05/24/18 05/15/24 documented as of this encounter
--- OUTSIDE RECORDS SUMMARY | 2025-01-19 18:55 | XMS_ITS | Encounter Summary ---
Author Organization [facility] Address [address] [place] [address] Phone Care Team Providers Care Train Operations Supervisor Name Role Phone Sharron Garcia MD Primary Care Provider Encounter Details Date Type Department Care Team (Late st Contact Info) Description 05/18/2016 Documentation [facility] [place] [address] [place] [address] Family Medicine, Physician [address] [place], [place] [phone] Social History Tobacco Use Types Packs/Day Years [...] filedocumented in this encounter Care Teams Train Operations Supervisor Relationship Specialty Start Date End Date Sharron Garcia MD [address] [place] [address] [place] [address] PCP - General Pediatrics 05/24/18 05/15/24 documented as of this encounter
--- OUTSIDE RECORDS SUMMARY | 2025-01-19 18:55 | XMS_ITS | Encounter Summary ---
Author Organization [facility] Address [address] [place] [address] Phone Care Team Providers Care Inclined Railway Operator Name Role Phone Sharron Garcia MD Primary Care Provider [phone] Reason for Visit * Reason Comments Med Refill Encounter Details Date Type Department Care Team (Late st Contact Info) Description 12/05/2022 Refill [facility] [place] [address] [place] [address] Sharron Garcia MD [address] [place] [address] Gastroesophageal reflux disease, unspecified whether esophagitis present [...] the last 12 months, has t he [employer], gas, oil, or water company threatened to [...] present documented in this encounter Care Teams Inclined Railway Operator Relationship Specialty Start Date End Date Sharron Garcia MD [address] [facility] [place] [address] PCP - General Pediatrics 05/24/18 05/15/24 documented as of this encounter
--- OUTSIDE RECORDS SUMMARY | 2025-01-19 18:55 | XMS_ITS | Encounter Summary ---
Author Organization [facility] Address [address] [place] [id number] Phone Care Team Providers Care Tape Maker Name Role Phone Sharron Garcia MD Primary Care Provider [phone] Reason for Visit * Reason Comments Med Refill Encounter Details Date Type Department Care Team (Late st Contact Info) Description 07/08/2018 Refill [facility] - [address] [address] Helena Harrell NP Vitamin D deficiency Social [...] deficiency documented in this encounter Care Teams Tape Maker Relationship Specialty Start Date End Date Sharron Garcia MD [address] [place] [address] [place] [id number] PCP - General Pediatrics 05/24/18 05/15/24 documented as of this encounter
[2025-01-19 19:03] VITALS: BP 146/79; PULSE 84; RESP 16; TEMP 36.1; O2SAT 98
== END 2025-01-19 19:03 | disposition home or self-care (01) ==
PROVIDERS: Emergency Provider Emergency Medicine Emergency Medical Services
DX: S60.042A Contusion of left ring finger without damage to nail, initial encounter (principal); Y29.XXXA Contact with blunt object, undetermined intent, initial encounter; Y93.9 Activity, unspecified; Y92.9 Unspecified place or not applicable; Y99.0 Civilian activity done for income or pay
CPT/HCPCS: 73140; 99283

== ENCOUNTER → 2025-01-19 16:41 | Outpatient (BNV) | payer OTHER, SELFPAY | PROVIDERS: Visit Provider Student in an Organized Health Care Education/Training Program | DX: M79.645 Pain in left finger(s) (principal) | CPT/HCPCS: 73140 ==